=== PATIENT | male | born 1975 | race Caucasian/White ===

== ENCOUNTER 2020-09-14 07:26 | Outpatient (REF) | payer OTHER, SELFPAY ==
[2020-09-14 08:17] LABS: MANUAL DIFF FLAG NO
[2020-09-14 08:37] LABS: Basophils Percent Auto 0.6 % (0-2); Eosinophils Absolute Auto 0.1 X10*3/uL (0.0-0.4); Eosinophils Percent Auto 2.3 % (0-4); Hematocrit 48.1 % (42-52); Hemoglobin 15.4 g/dl (14.0-18.0); Imm Gran Abs Auto 0.01 X10*3/uL (0.00-0.03); Imm Gran Pct Auto 0.2 % (0.0-0.4); Lymphocytes Absolute Auto 1.9 X10*3/uL (1.2-4.9); Lymphocytes Percent Auto 30.3 % (20-40); Mean Corpuscular Hemoglobin 27.1 pg (27.0-33.0); Mean Corpuscular Volume 84.7 fL (80-98); Mean Platelet Volume 10.2 fL (9.4-12.4); Monocytes Absolute Auto 0.7 X10*3/uL (0.1-1.2); Monocytes Percent Auto 10.6 % (2-11); Neutrophils Absolute Auto 3.5 X10*3/uL (2.0-8.3); Platelet Count 223 X10*3/uL (160-400); Red Blood Count 5.68 X10*6/uL (4.60-5.80); Red Cell Distribution Width 13.1 % (11.0-16.0); White Blood Count 6.2 X10*3/uL (4.8-10.8)
[2020-09-14 08:50] LABS: Alanine Aminotransferase 23 U/L (0-40); Albumin Level 4.3 g/dL (3.5-5.0); Alkaline Phosphatase 66 U/L (39-117); Anion Gap 12 (12-20); Aspartate Amino Transferase 19 U/L (5-37); Bilirubin Total 0.3 mg/dL (0.0-1.0); Blood Urea Nitrogen 18 mg/dL (9-16); Calcium 8.8 mg/dL (8.4-10.2); Carbon Dioxide 28 mmol/L (22-29); Chloride 104 mmol/L (96-108); Cholesterol 192 mg/dL; Estimated Glomerular Filt Rate > 60; Glucose Random 92 mg/dL (60-115); HDL Cholesterol 39 mg/dL; LDL Cholesterol Calculated 122 mg/dl; Potassium 3.8 mmol/L (3.3-5.1); Sodium 140 mmol/L (135-145); Total Protein 7.2 g/dL (6.5-8.0); Triglycerides 157 mg/dL
[2020-09-14 10:01] LABS: Folate 17.4 ng/mL (> or = 4.0); Thyroid Stimulating Hormone 3.06 uIU/mL (0.32-4.0); Vitamin B12 387 pg/mL (200-900)
== END 2020-09-14 07:27 | disposition home or self-care (01) ==
LOC: HO.LAB 07:26
PROVIDERS: PCP Internal Medicine; Visit Provider Internal Medicine
DX: K21.9 Gastro-esophageal reflux disease without esophagitis (principal); E78.2 Mixed hyperlipidemia; E78.00 Pure hypercholesterolemia, unspecified
CPT/HCPCS: 36415; 80053; 80061; 82607; 82746; 84443; 85025

== ENCOUNTER 2022-02-23 08:18 | Outpatient (REF) | payer OTHER, SELFPAY ==
[2022-02-23 08:39] LABS: MANUAL DIFF FLAG NO
[2022-02-23 10:27] LABS: Basophils Percent Auto 0.6 % (0-2); Eosinophils Absolute Auto 0.1 X10*3/uL (0.0-0.4); Eosinophils Percent Auto 1.6 % (0-4); Hematocrit 50.4 % (42.0-52.0); Imm Gran Abs Auto 0.01 X10*3/uL (0.00-0.03); Imm Gran Pct Auto 0.1 % (0.0-0.4); Lymphocytes Absolute Auto 1.8 X10*3/uL (1.2-4.9); Lymphocytes Percent Auto 26.6 % (20-40); Mean Corpuscular HGB Conc 31.7 g/dl (31.0-36.0); Mean Corpuscular Hemoglobin 26.3 pg (27.0-33.0); Mean Corpuscular Volume 82.8 fL (80.0-98.0); Monocytes Absolute Auto 0.7 X10*3/uL (0.1-1.2); Monocytes Percent Auto 10.2 % (2-11); Neutrophils Absolute Auto 4.2 x10*3/uL (2.0-8.3); Neutrophils Percent Auto 60.9 % (45-73); Platelet Count 212 X10*3/uL (160-400); Red Blood Count 6.09 X10*6/uL (4.60-5.80); Red Cell Distribution Width 13.2 % (11.0-16.0); White Blood Count 6.8 X10*3/uL (4.8-10.8)
[2022-02-23 11:00] LABS: Alanine Aminotransferase 24 U/L (0-40); Alkaline Phosphatase 61 U/L (39-117); Anion Gap 16 (12-20); Aspartate Amino Transferase 20 U/L (5-37); Bilirubin Total 0.5 mg/dL (0.0-1.0); Blood Urea Nitrogen 14 mg/dL (9-16); Carbon Dioxide 26 mmol/L (22-29); Chloride 102 mmol/L (96-108); Cholesterol 202 mg/dL; Estimated Glomerular Filt Rate > 60; Glucose Random 87 mg/dL (60-115); HDL Cholesterol 37 mg/dL; LDL Cholesterol Calculated 140 mg/dl; Potassium 4.8 mmol/L (3.3-5.1); Sodium 139 mmol/L (135-145); Total Protein 7.1 g/dL (6.5-8.0); Triglycerides 125 mg/dL
[2022-02-23 11:10] LABS: Free T4 (Free Thyroxine) 1.05 ng/dL (0.71-1.85); Thyroid Stimulating Hormone 1.28 uIU/mL (0.32-4.0)
[2022-02-23 16:14] LABS: Folate > 20.0 ng/mL (> or = 4.0); Vitamin B12 476 pg/mL (200-900)
== END 2022-02-23 08:19 | disposition home or self-care (01) ==
LOC: HO.LAB 08:18
PROVIDERS: PCP Internal Medicine; Visit Provider Internal Medicine
DX: E78.2 Mixed hyperlipidemia (principal); E78.00 Pure hypercholesterolemia, unspecified
CPT/HCPCS: 36415; 80053; 80061; 82607; 82746; 84439; 84443; 85025

== ENCOUNTER → 2022-04-30 13:59 | Outpatient (BNVA) | payer OTHER, SELFPAY | PROVIDERS: PCP Internal Medicine; Referring Provider Internal Medicine; Visit Provider Physician Assistant | DX: Z12.11 Encounter for screening for malignant neoplasm of colon (principal); K21.9 Gastro-esophageal reflux disease without esophagitis | CPT/HCPCS: 99202 ==

== ENCOUNTER 2022-05-24 07:53 | Outpatient (REF) | payer OTHER, SELFPAY | END 2022-05-24 07:54 | disposition home or self-care (01) | LOC: HO.SH 07:53 | PROVIDERS: Visit Provider Internal Medicine | DX: H90.0 Conductive hearing loss, bilateral (principal); H69.93 Unspecified Eustachian tube disorder, bilateral | CPT/HCPCS: 92557; 92567; 92588 ==

== ENCOUNTER 2022-07-06 07:58 | Outpatient (REF) | payer OTHER, SELFPAY ==
[2022-07-06 09:13] LABS: Alanine Aminotransferase 23 U/L (0-40); Albumin Level 4.3 g/dL (3.5-5.0); Alkaline Phosphatase 65 U/L (39-117); Anion Gap 11 (12-20); Aspartate Amino Transferase 20 U/L (5-37); Bilirubin Total 0.6 mg/dL (0.0-1.0); Blood Urea Nitrogen 15 mg/dL (9-16); Calcium 9.7 mg/dL (8.4-10.2); Carbon Dioxide 28 mmol/L (22-29); Chloride 105 mmol/L (96-108); Cholesterol 191 mg/dL; Estimated Glomerular Filt Rate > 60; Glucose Random 93 mg/dL (60-115); HDL Cholesterol 39 mg/dL; LDL Cholesterol Calculated 130 mg/dl; Potassium 4.4 mmol/L (3.3-5.1); Sodium 140 mmol/L (135-145); Total Protein 7.2 g/dL (6.5-8.0); Triglycerides 114 mg/dL
[2022-07-13 13:18] LABS: Testosterone, Total 344 ng/dL (250-1100)
== END 2022-07-06 07:59 | disposition home or self-care (01) ==
LOC: HO.LAB 07:58
PROVIDERS: PCP Internal Medicine; Visit Provider Internal Medicine
DX: E78.2 Mixed hyperlipidemia (principal); E78.00 Pure hypercholesterolemia, unspecified; N52.9 Male erectile dysfunction, unspecified
CPT/HCPCS: 36415; 80053; 80061; 84403

== ENCOUNTER 2023-01-06 10:10 | Day surgery (SDC) | payer OTHER, SELFPAY ==
[2023-01-02 10:14] VITALS: BMI 28.6
--- NOTE | 2023-01-03 13:54 | HO.ANESPROP2 ---
Documented by User: Suzanna Gaytan NP 01/03/23 13:54 HPI - Anesthesia Eval Consult details Narrative: 47yo M for Upper Endoscopy and Colonoscopy [facility] Active Problems Active Problems: All Active Problems (Updated 07/08/22 @ 17:59 by Ortega Pike MD) Eczema (Acute) Onychomycosis (Acute) Vision changes (Acute) Conductive hearing loss (Acute) Overweight (BMI 25.0-29.9) (Acute) Annual physical exam (Acute) Tinea pedis (Acute) Erectile dysfunction (Acute) Colon cancer screening (Acute) Constipation (Acute) Hearing impairment (Acute) Hemorrhoid (Acute) Annual physical exam (Acute) COVID-19 virus infection (Acute) Allergic rhinitis (Acute) Hyperlipidemia (Acute) GERD (gastroesophageal reflux disease) (Acute) Past Medical History Medical History Allergic rhinitis Atherosclerosis GERD (gastroesophageal reflux disease) Hyperlipidemia Family History Family History Father Alive and well Mother Hypertension Depression Paternal Aunt Breast cancer Diabetes Sister Breast cancer Surgical History Surgical History History of vasectomy Social History Social History (Updated 07/08/22 @ 17:40 by Ortega Pike MD) Housing: House Alcohol intake: current Alcohol intake frequency: a few times a month Patient Tobacco Use Status: Never used Tobacco e-Cigarette/Vaping Use: Never Used Second Hand Smoke Exposure: No Use of substances other than those prescribed or required for medical reasons: No Are you DNR?: No Advance Directives: No Advance Directives Information Provided: Yes service: No Current occupational status: employed Cognitive needs: No Hearing needs: No Vision needs: No Meds Allergies Allergy/AdvReac Type Severity Reaction Status Date / Time iodine [IODINE] Allergy Mild RASH Verified 12/05/22 08:48 Home Medications Medication Instructions Recorded Confirmed Last Taken Type cholecalciferol (vitamin D3) 25 25 mcg PO DAILY 04/03/20 01/02/23 Unknown History mcg (1,000 unit) capsule multivitamin 1 tab PO DAILY 04/03/20 01/02/23 Unknown History garlic 500 mg capsule 500 mg PO DAILY 07/02/21 01/02/23 Unknown History Exam Exam Date and Time: January 03, 2023 1354 Height,Weight and Vital Signs: Height 5 ft 5 in Weight 78.018 kg Pertinent Lab Results Pertinent Lab Results: Laboratory Tests 02/23/22 07/06/22 08:38 08:12 WBC 6.8 Hgb 16.0 Hct 50.4 Plt Count 212 Sodium 140 Potassium 4.4 Chloride 105 Carbon Dioxide 28 BUN 15 Creatinine 1.20 Assessment and Plan Assessment Anesthesia Assessment: Chart Reviewed Documented by User: Joshua Adams MD 01/06/23 12:17 [facility] Past Medical History Medical History Allergic rhinitis Atherosclerosis GERD (gastroesophageal reflux disease) Hyperlipidemia Family History Family History Father Alive and well Mother Hypertension Depression Paternal Aunt Breast cancer Diabetes Sister Breast cancer Family history of problems with anesthesia: No Surgical History Surgical History History of vasectomy History of Problems with Anesthesia: No Social History Social History (Updated 07/08/22 @ 17:40 by Ortega Pike MD) Housing: House Alcohol intake: current Alcohol intake frequency: a few times a month Patient Tobacco Use Status: Never used Tobacco e-Cigarette/Vaping Use: Never Used Second Hand Smoke Exposure: No Use of substances other than those prescribed or required for medical reasons: No Are you DNR?: No Advance Directives: No Advance Directives Information Provided: Yes service: No Current occupational status: employed Cognitive needs: No Hearing needs: No Vision needs: No Meds Allergies Allergy/AdvReac Type Severity Reaction Status Date / Time iodine [IODINE] Allergy Mild RASH Verified 12/05/22 08:48 Home Medications Medication Instructions Recorded Confirmed Last Taken Type cholecalciferol (vitamin D3) 25 25 mcg PO DAILY 04/03/20 01/02/23 Unknown History mcg (1,000 unit) capsule multivitamin 1 tab PO DAILY 04/03/20 01/02/23 Unknown History garlic 500 mg capsule 500 mg PO DAILY 07/02/21 01/02/23 Unknown History Exam Airway Mallampati Class: II TM Dist: >3cm Neck ROM: Full Heart: rrr Lungs: cta Assessment and Plan Assessment Anesthesia Assessment: Anesthesia Plan Discussed Final Anesthetic Review Family History of Problems with Anesthesia: No History of Problems with Anesthesia: No NPO: Yes ASA Class: II Final Preanesthetic Review: No Changes in Pt Med Stat, Meds/Allgs Chart Reviewed, Consent Obtained/Reviewed and Anes Risks/Benef Reviewed Patient Risk: Intermediate Procedure Risk: Intermediate Anesthetic Plan Anesthetic Plan: MAC: and Agree w/ Assess. and Plan Disposition: Standard PACU
[2023-01-06 11:53] VITALS: BMI 27.8
--- NOTE | 2023-01-06 12:02 | P.HPSUR_ITS ---
Pre-Procedural Eval Section A Date of Service: 01/06/23 The patient is an INPATIENT: No The History & Physical has been completed within 30 days and I have reviewed it.: No Section B Chief Complaint: GERD/Screening Relevant Family History (Specify if Yes): No Relevant Social History: None Present Medications: see Short Stay Collaborative assessment Medical History: Significant History (Allergic rhinitis Atherosclerosis GERD (gastroesophageal reflux disease) Hyperlipidemia) History of Previous Operations: Relevant previous surgery/procedure and date(s) (History of vasectomy) Allergies: Allergies Allergy/AdvReac Type Severity Reaction Status Date / Time iodine [IODINE] Allergy Mild RASH Verified 12/05/22 08:48 Review of Systems Sugical H&P ROS: Negative: Constitution, Cardiovascular, Respiratory and Dinorah rointestinal Exam Surgical H&P Exam: Normal: Heart, Normal: Lungs, Normal: Extremities and Normal: Abdomen Plan Diagnosis/Plan: Unchanged I have reviewed the history and physical and performed a pertinent physical examination on my patient. No changes have occurred unless specified. Time Spent With Patient Time: Total time managing care of this patient today ____ minutes.
--- NOTE | 2023-01-06 12:02 | W.PM.OPN ---
Operative Note Operative Note Date of Service: 01/06/23 Narrative: FLEXIBLE TRANSORAL UPPER GASTROINTESTINAL ENDOSCOPY WITH BIOPSIES AND COLONOSCOPY TILL CECUM Pre-op diagnosis: colon cancer screening, GERD Post-op diagnosis: GERD, Gastritis, diverticulosis, hemorrhoids Endoscopist:? Violeta Adorno MD Anesthesia:?MAC UPPER ENDOSCOPY Consent: Indications for the procedure and potential complications of bleeding, perforation, reaction to medications and missed diagnosis were discussed with the patient and informed consent was obtained. Instrument: Olympus GIF H 190 mid size upper endoscope Monitoring: Vital signs and clinical assessment, continuous EKG monitoring, Pulse oximetry, Carbon Dioxide monitoring and blood pressure monitoring were done throughout the procedure. Procedure: The patient was placed in the left lateral decubitis position and pre-procedure medications were administered and a bite block was placed. The endoscope was inserted into the mouth and advanced under direct vision to the third part of duodenum. A careful inspection was made as the upper endoscope was withdrawn including a retroflexed examination of the proximal stomach; Findings and interventions are described below. Findings: Larynx: Normal Esophagus: GE junction at 40 cms. No esophagitis or Leal's. Stomach: Moderate diffuse gastric erythema. Biopsies were obtained from the antrum and body of the stomach. Grade 2 flap valve on retroflexed examination of the cardia. Duodenum: Normal bulb and descending duodenum Intervention: Biopsies as noted above COLONOSCOPY PROCEDURE NOTE Consent: Indications for the procedure and potential complications of bleeding, perforation, reaction to medications and missed diagnosis were discussed with the patient and informed consent was obtained. Instrument: Olympus PCF H 190 L variable stiffness pediatric colonoscope Monitoring: Vital signs and clinical assessment, intermittent blood pressure monitoring, continuous EKG monitoring, Pulse oximetry and Carbon Dioxide monitoring were done throughout the procedure. Colon withdrawl time was 10 minutes. Procedure: The patient was placed in the left lateral decubitis position and pre-procedure medications were administered. After a digital rectal examination of the ano-rectum, the video colonoscope was inserted into the rectum and advanced through the colon to the cecum. The colonoscope was slowly withdrawn in a retrograde panoramic fashion and the colon mucosa was carefully examined including a retroflexed view of the rectum. Findings and interventions are described below. Procedure Difficulty: : Without difficulty Findings: Terminal Ileum: Not evaluated Cecum: Normal Ascending Colon: Normal Transverse Colon: Normal Descending Colon: Normal Sigmoid Colon: Moderate diverticulosis Rectum: Normal Ano-rectum: Moderate internal hemorrhoids Colon preparation: Excellent Impression and Post Procedure Diagnosis: Endoscopy Findings: ESOPHAGUS: Normal STOMACH: Diffuse gastritis Colonoscopy Findings: No polyps were detected Moderate diverticulosis seen in the sigmoid colon Moderate hemorrhoids on retroflexed exam. Plan: Await pathology results Patient has an appointment on 02/12/23 in the GI Clinic with TUNG Busby . Repeat Colonoscopy in 10 years. Above findings were reviewed with the patient and GERD and diverticulosis handouts were given in the discharge area
[2023-01-06 12:06] VITALS: BP 117/71; PULSE 67; RESP 16; TEMP 36.5; O2SAT 98
[2023-01-06] MEDS: Lactated Ringers 1,000 ML 100 ML IVCONT (12:15)
[2023-01-06 13:39] VITALS: BP 93/52; PULSE 57; RESP 16; TEMP 36.1; O2SAT 98
[2023-01-06 13:54] VITALS: BP 103/62; PULSE 55; RESP 17; TEMP 36.5; O2SAT 99
== END 2023-01-06 15:07 | disposition home or self-care (01) ==
PROVIDERS: PCP Internal Medicine; Visit Provider Internal Medicine Gastroenterology
PROC: (CPT 45378; principal; 2023-01-06 11:50)
DX: Z12.11 Encounter for screening for malignant neoplasm of colon (principal); K29.70 Gastritis, unspecified, without bleeding; K57.30 Diverticulosis of large intestine without perforation or abscess without bleeding; K64.8 Other hemorrhoids; K21.9 Gastro-esophageal reflux disease without esophagitis; E78.5 Hyperlipidemia, unspecified; Z79.899 Other long term (current) drug therapy
CPT/HCPCS: 45378; 43239; 88305; 88342

== ENCOUNTER → 2023-01-06 10:10 | Outpatient (BNV) | payer OTHER, SELFPAY | PROVIDERS: PCP Internal Medicine; Visit Provider Internal Medicine Gastroenterology | DX: Z12.11 Encounter for screening for malignant neoplasm of colon (principal); K57.30 Diverticulosis of large intestine without perforation or abscess without bleeding; K64.8 Other hemorrhoids; K21.9 Gastro-esophageal reflux disease without esophagitis | CPT/HCPCS: 43239; 45378 ==

== ENCOUNTER 2023-02-20 11:53 | Outpatient (AMB) | payer OTHER, SELFPAY ==
--- NOTE | 2023-02-20 11:56 | A.OFFVIS_ITS ---
Intake Vital Signs 02/20/23 11:57 Height 5 ft 5 in Weight 169 lb BMI 28.1 BP 109/57 L Blood Pressure Location Lt brachial Position Sitting Pulse 67 Intake Visit Reasons: S/p egd/colon- Kyree Intake Note: Patient follow up fro Colonoscopy/EGD results. Patient cc: Embedded Developer Required: Yes Accompanied by: Self / Same As Patient Allergies iodine [IODINE] Allergy (Mild, Verified 02/20/23 11:56) RASH HPI HPI Comments History of Present Illness Details A 48-year-old male intermittent acid reflux, follows up after recent EGD and index screening colonoscopy He tolerated procedures well-he has no GI complaints other than occasional dyspepsia Reviewed procedure report, pathology recommendation Opportunity for question He has no nausea, vomiting, hematemesis, hematochezia fever chills PFSH Medical History Atherosclerosis Allergic rhinitis Hyperlipidemia GERD (gastroesophageal reflux disease) Surgical History Hx of colonoscopy Hx of esophagogastroduodenoscopy History of vasectomy Family History Father Alive and well Mother Hypertension Depression Paternal Aunt Breast cancer Diabetes Sister Breast cancer Social History Housing: House Alcohol intake: current Alcohol intake frequency: a few times a month Patient Tobacco Use Status: Never used Tobacco e-Cigarette/Vaping Use: Never Used Second Hand Smoke Exposure: No service: No Current occupational status: employed Cognitive needs: No Hearing needs: No Vision needs: No Review of Systems Const All systems reviewed & are unremarkable except as noted in HPI and below Card Denies chest pain and Denies dyspnea Resp Denies dyspnea GI Reports dyspepsia Physical Exam Vital Signs: Last Vital Signs Pulse 67 02/20/23 11:57 BP 109/57 L 02/20/23 11:57 BMI result Body Mass Index 28.1 Const General: cooperative, healthy appearing, comfortable and no acute distress Orientation/consciousness: patient oriented x3 Limitations: no limitations Eyes Sclerae: sclerae normal Resp Effort & Inspection: normal respiratory effort and able to speak in complete sentences Skin General skin exam: no rashes or lesions noted Neuro General: patient oriented x3 Extrem General: Yes full ROM Psych Appearance: grossly normal and well kempt Mental Status: mental status grossly normal Speech and movement: Normal speech and movement present and Clear speech present Affect: normal affect Attitude: cooperative Thought process: Normal thought process present Thought content: Normal thought content present Insight: Good insight present (Psych) Judgement: Good judgement present (Psych) Results Reviewed Results Reviewed: mpression and Post Procedure Diagnosis: Endoscopy Findings: ESOPHAGUS: Normal STOMACH: Diffuse gastritis Colonoscopy Findings: No polyps were detected Moderate diverticulosis seen in the sigmoid colon Moderate hemorrhoids on retroflexed exam. Plan: Await pathology results Patient has an appointment on 02/12/23 in the GI Clinic with TUNG Busby . Repeat Colonoscopy in 10 years. Above findings were reviewed with the patient and GERD and diverticulosis handouts were given in the discharge area raul: Isak Junior Age/Sex: 48/M Attending: Violeta Adorno MD : 1975 Submitted by: Violeta Adorno MD Copies to: Ortega Pike MD MR #: [id number] Status: [facility] Collected: 01/06/23 Location: [facility] Received: 01/06/23 Diagnosis A. Stomach, antrum, biopsy: - Antral-type mucosa with severe chronic active inflammation. - Positive for H pylori. B. Stomach, body, biopsy: - Oxyntic mucosa with moderate chronic inactive inflammation. - Rare forms morphologically consistent with H.pylori identified. Clinical History Pre-Op Dx: Screening Post-Op Dx: GERD, Gastritis, diverticulosis, hemorrhoids Microscopic Description A, B. Microscopic sections reviewed. Immunostain for H. pylori is reactive (A a nd B; rare forms in B). Material Received A. Gastric antrum to r/o H. pylori B. Gastric body to r/o gastritis Gross Description A. Received in formalin are 2 mckeon 1 and 3 mm soft tissue fragments, totally submitted in cassette A1. B. Received in formalin are 2 mckeon 1 and 3 mm soft tissue fragments, totally submitted in cassette B1. (DTL) Special studies ordered and performed: immunostain for H. pylori on A and B Copies To Violeta Adorno MD [address] [place] [address] [place] [id number] Po,Ortega Layne MD [address] [place] [address] Dr. Velásquez [address] [id number] Patient: Isak Junior Age/Sex: 48/M MR#: [id number] Page 1 of 2 Assessment & Plan Assessment & Plan (1) Diverticulosis of colon: Code(s): K57.30 - Diverticulosis of large intestine without perforation or abscess without bleeding Plan: High-fiber diet Diverticulosis/diverticulitis ER protocol (2) Gastritis: Code(s): K29.70 - Gastritis, unspecified, without bleeding (3) Hemorrhoid: Code(s): K64.9 - Unspecified hemorrhoids Plan: High-fiber Avoid straining (4) H. pylori infection: Comment: H pylori Code(s): A04.8 - Other specified bacterial intestinal infections Plan: Treat /ELTON 6 weeks Plan H pylori treat-return for ELTON 6 weeks Repeat asymptomatic colonoscopy 10 years Orders: Orders H Pylori Breath Test 6 Weeks A04.8 - Other specified bacterial intestinal infections Medications: New tetracycline 500 mg PO Q6H 14 days 56 caps 0RF omeprazole 20 mg PO BID 14 days 28 caps 0RF metronidazole 250 mg PO QID 14 days 56 tabs 0RF bismuth subsalicylate (Bismuth) 2 tabs PO QID 14 days 112 tabs 0RF Patient Instructions: Gurpreet Bernabe follows up after recent index screening colonoscopy and EGD-repeat asymptomatic colonoscopy 10 years Reviewed procedure report pathology shows H pylori-2 week course of treatment- encouraged to complete will do a ELTON in 6 weeks Diverticulosis/diverticulitis ER protocol review Maintain high-fiber diet-hemorrhoids avoid straining, if become problematic will refer to surgery he declines at this time No major barriers to understanding were identified Appreciate the opportunity assist in the care this gurpreet Bernabe Coding Level of Care Code Est Pt Level 3 (37798) Diagnoses Diverticulosis of colon K57.30 Gastritis K29.70 Hemorrhoid K64.9 H. pylori infection A04.8 Time Spent (min) 30
[2023-02-20 11:57] VITALS: BP 109/57; PULSE 67; BMI 28.1
== END 2023-02-20 13:47 | disposition home or self-care (01) ==
PROVIDERS: PCP Internal Medicine; Visit Provider Physician Assistant
DX: K57.30 Diverticulosis of large intestine without perforation or abscess without bleeding (principal); K29.70 Gastritis, unspecified, without bleeding; K64.9 Unspecified hemorrhoids; A04.8 Other specified bacterial intestinal infections
CPT/HCPCS: 99213

== ENCOUNTER → 2023-02-20 11:53 | Outpatient (BNVA) | payer OTHER, SELFPAY | PROVIDERS: PCP Internal Medicine; Visit Provider Physician Assistant | DX: K57.30 Diverticulosis of large intestine without perforation or abscess without bleeding (principal); K29.70 Gastritis, unspecified, without bleeding; K64.9 Unspecified hemorrhoids; A04.8 Other specified bacterial intestinal infections | CPT/HCPCS: 99212 ==

== ENCOUNTER 2023-04-03 07:59 | Outpatient (AMB) | payer OTHER, SELFPAY ==
--- NOTE | 2023-04-03 08:07 | MHC.OFFVIS ---
Intake Vital Signs 04/03/23 08:09 Height 5 ft 5 in Weight 172 lb BMI 28.6 BP 104/54 L Blood Pressure Location Lt brachial Position Sitting Pulse 73 Intake Visit Reasons: 6weeks f/u h-pylori Intake Note: Patient follow up for h pylori recheck. Patient denies any GI issues. Java Golden [employer] Developer Required: No Accompanied by: Self / Same As Patient Allergies iodine [IODINE] Allergy (Mild, Verified 04/03/23 08:07) RASH HPI HPI Comments History of Present Illness Details 48-year-old male treated for H pylori, follows up for ELTON-he feels well he tolerated the course of treatment well. No dyspepsia, appetite good no issues with bowel No nausea, vomiting, hematemesis, hematochezia fever or chills PFSH Medical History Atherosclerosis Allergic rhinitis Hyperlipidemia GERD (gastroesophageal reflux disease) Surgical History Hx of colonoscopy Hx of esophagogastroduodenoscopy History of vasectomy Family History Father Alive and well Mother Hypertension Depression Paternal Aunt Breast cancer Diabetes Sister Breast cancer Social History Housing: House Alcohol intake: current Alcohol intake frequency: a few times a month Patient Tobacco Use Status: Never used Tobacco e-Cigarette/Vaping Use: Never Used Second Hand Smoke Exposure: No service: No Current occupational status: employed Cognitive needs: No Hearing needs: No Vision needs: No Review of Systems Const Details: All other systems reviewed are negative All systems reviewed & are unremarkable except as noted in HPI and below Physical Exam Vital Signs: Last Vital Signs Pulse 73 04/03/23 08:09 BP 104/54 L 04/03/23 08:09 BMI result Body Mass Index 28.6 Const General: cooperative, healthy appearing, comfortable and no acute distress Orientation/consciousness: patient oriented x3 Limitations: no limitations Resp Effort & Inspection: normal respiratory effort and able to speak in complete sentences Skin General skin exam: no rashes or lesions noted Neuro General: patient oriented x3 Extrem General: Yes full ROM Psych Appearance: grossly normal and well kempt Mental Status: mental status grossly normal Speech and movement: Normal speech and movement present and Clear speech present Affect: normal affect Attitude: cooperative Thought process: Normal thought process present Thought content: Normal thought content present Insight: Good insight present (Psych) Judgement: Good judgement present (Psych) Assessment & Plan Assessment & Plan (1) H. pylori infection: Comment: A very pleasant Gent, H pylori-treated quadruple therapy- Code(s): A04.8 - Other specified bacterial intestinal infections Plan: HP UBT-ELTON- Plan Await H pylori results Patient Instructions: Await results for H pylori if negative nothing more to do If positive will re-treat Patient will call in 48 hours for results Coding Level of Care Code Est Pt Level 3 (36497) Diagnoses H. pylori infection A04.8 Time Spent (min) 35
[2023-04-03 08:09] VITALS: BP 104/54; PULSE 73; BMI 28.6
== END 2023-04-03 09:10 | disposition home or self-care (01) ==
PROVIDERS: PCP Internal Medicine; Visit Provider Physician Assistant
DX: A04.8 Other specified bacterial intestinal infections (principal)
CPT/HCPCS: 99213

== ENCOUNTER → 2023-04-03 07:59 | Outpatient (BNVA) | payer OTHER, SELFPAY | PROVIDERS: PCP Internal Medicine; Visit Provider Physician Assistant | DX: A04.8 Other specified bacterial intestinal infections (principal) | CPT/HCPCS: 99212 ==

== ENCOUNTER 2023-04-07 15:21 | Outpatient (REF) | payer OTHER, SELFPAY ==
[2023-04-10 16:30] LABS: H Pylori Breath Test Negative (Negative)
== END 2023-04-07 15:22 | disposition home or self-care (01) ==
LOC: HO.LNP 15:21
PROVIDERS: Visit Provider Physician Assistant
DX: A04.8 Other specified bacterial intestinal infections (principal)
CPT/HCPCS: 83013

== ENCOUNTER 2023-07-15 07:40 | Outpatient (REF) | payer OTHER, SELFPAY ==
[2023-07-15 08:15] LABS: Alanine Aminotransferase 28 U/L (0-40); Alkaline Phosphatase 65 U/L (39-117); Aspartate Amino Transferase 18 U/L (5-37); Bilirubin Direct 0.1 mg/dL (0.0-0.5); Bilirubin Total 0.4 mg/dL (0.0-1.0)
== END 2023-07-15 07:41 | disposition home or self-care (01) ==
LOC: HO.LAB 07:40
PROVIDERS: Absent Provider Internal Medicine; PCP Internal Medicine; Visit Provider Nurse Practitioner Family
DX: R79.89 Other specified abnormal findings of blood chemistry (principal); H90.2 Conductive hearing loss, unspecified
CPT/HCPCS: 36415; 80076

== ENCOUNTER 2023-07-18 16:00 | Outpatient (AMB) | payer OTHER, SELFPAY ==
[2023-07-18 16:10] VITALS: BP 110/78; PULSE 70; O2SAT 98; BMI 28.7
--- NOTE | 2023-07-18 16:10 | MHC.PC.OV ---
Vital Signs 07/18/23 16:10 Height 5 ft 5 in Weight 172 lb 6 oz BMI 28.7 BP 110/78 Blood Pressure Location Lt brachial Position Sitting Pulse 70 Pulse Source Pulse Oximeter Pulse Oximetry (%) 98 Oxygen Delivery Method Room Air Intake Visit Reasons: PE Intake Note: Patient is here today for a physical. Frame Stripper Required: No Accompanied by: Self / Same As Patient Allergies iodine [IODINE] Allergy (Mild, Verified 07/18/23 16:22) RASH Medication List - Last Reconciled 07/18/23 by Ortega Pike MD cholecalciferol (vitamin D3) 25 mcg PO DAILY clotrimazole 1% 1 appl topical BID 4 weeks multivitamin 1 tab PO DAILY pravastatin 20 mg PO DAILY sildenafil (Viagra) 100 mg PO DAILY PRN triamcinolone acetonide 0.5% 1 appl topical BID 7 days Tobacco use date assessed: 07/18/23 Dental Screening Dental Screen Date: 07/18/23 Did you have a dental visit in the last 12 months?: Yes Did you have a dental problem in the last 6 months where you did not have access to dental care?: No Was dental information given to patient?: Patient has dentist HPI PE HPI Details 48-year-old overweight male with hypercholesterolemia GERD coming in for physical exam. Last seen in November 2022. EGD and colonoscopy are up-to-date. Review of the notes was seen by the Gastroenterology in March 2023 for H pylori follow-up patient had EGD and colonoscopy in December 2022 and the stomach biopsy showing positive for H pylori and the patient was treated.. Noted nurse practitioner follow-up in November 2022. states 2-3 days of L shoulder pain PFSH Medical History Atherosclerosis Allergic rhinitis Hyperlipidemia GERD (gastroesophageal reflux disease) Surgical History Hx of colonoscopy Hx of esophagogastroduodenoscopy History of vasectomy Family History (Updated 07/18/23 @ 16:41 by Ortega Pike MD) Father Alive and well Mother Hypertension Depression Paternal Aunt Breast cancer Diabetes Sister Breast cancer Paternal Grandmother Myocardial infarct Social History (Updated 07/18/23 @ 16:42 by Ortega Pike MD) Housing: House Alcohol intake: current Alcohol intake frequency: a few times a month Comment: once a month- 3 drinks Patient Tobacco Use Status: Never used Tobacco Years Smoked: does Marijuana e-Cigarette/Vaping Use: Never Used Second Hand Smoke Exposure: No service: No Current occupational status: employed Cognitive needs: No Hearing needs: No Vision needs: No Questionnaire PHQ-9 Over the last 2 weeks, how often have you been bothered by any of the following problems? 1. Little interest or pleasure in doing things: not at all 2. Feeling down, depressed, or hopeless: not at all 3. Trouble falling or staying asleep, or sleeping too much: not at all 4. Feeling tired or having little energy: not at all 5. Poor appetite or overeating: not at all 6. Feeling bad about yourself - or that you are a failure or have let yourself or your family down: not at all 7. Trouble concentrating on things, such as reading the newspaper or watching television: not at all 8. Moving or speaking so slowly that other people could have noticed. Or the opposite - being so fidgety or restless that you have been moving around a lot more than usual: not at all 9. Thoughts that you would be better off or of hurting yourself in some way: not at all Total score: 0 Depression Screening Interpretation: Negative Depression Screening Done: Yes 97542 - PHQ-9 Billing: Yes Source: Developed by Drs. Ramírez Dawson, Carri Marie, Gonzalo العلي and colleagues, with an educational faustino from [employer]. Thrive Questionnaire Date Thrive assessed: 07/18/23 I am a: Patient What is your living situation today?: I have a steady place to live Within the past 12 months, did the food you bought not last and you didn't have the money to get more?: Never true Within the past 12 months, did you worry whether your food would run out before you got money to buy more?: Never true Do you have trouble paying for medicines?: No Do you have trouble getting transportation to medical appointments?: No Do you have trouble paying your heating and electricity bill?: No Do you have trouble taking care of your child, family member or friend?: No Do you have trouble with day-to-day activities such as bathing, preparing meals, shopping, managing finances, etc.?: No Are you currently unemployed and looking for a job?: No Are you interested in more education?: No Please select the resources that you would like help with: None Currently or been in a relationship where the following occur: no concerns reported THRIVE Score: 0 AUDIT C Alcohol Use Questionnaire (AUDIT-C) 1. How often do you have a drink containing alcohol?: Monthly or less 2. How many drinks containing alcohol do you have on a typical day when you are drinking?: 5 or 6 3. How often do you have six or more drinks on one occasion?: Less than monthly Total Score: 4 ADITYA-7 AMB Questionnaire ADITYA-7 Date ADITYA - 7 assessed: 07/18/23 Feeling nervous, anxious, or on edge: 0 = Not at all Not being able to stop or control worryin = Not at all Worrying too much about different things: 0 = Not at all Trouble relaxin = Not at all Being so restless that it is hard to sit still: 0 = Not at all Becoming easily annoyed or irritable: 0 = Not at all Feeling afraid as if something awful might happen: 0 = Not at all Total ADITYA-7 score (0-4 normal; 5-9 mild; 10-14 moderate; 15-21 severe): 0 Source: Developed by Drs. Ramírez Dawson, Carri Marie, Gonzalo العلي and colleagues, with an educational faustino from [employer]. ADITYA-7 Assessment Billing ADITYA-7 Assessment Tool: ADITYA-7 Assessment 51125 Review of Systems Const Denies poor appetite and Denies weakness Eyes Denies no additional complaints ENT Reports Normal hearing present, Denies dizziness, Denies nasal congestion, Denies tinnitus and Denies sore throat Card Denies chest pain, Denies syncope, Denies rapid heart rate and Denies dyspnea Resp Denies cough and Denies dyspnea GI Denies change in stool character, Reports constipation, Denies diarrhea, Denies nausea and Denies vomiting Denies dysuria and Denies urinary frequency Neuro Reports Normal hearing present, Denies confusion, Denies dizziness, Denies syncope and Denies weakness Psych Denies confusion Physical exam (Primary Care) BMI result Body Mass Index 28.7 Tobacco/Smoking Status: Tobacco use Status Tobacco use date assessed 07/08/22 07/18/23 16:11 Patient Tobacco Use Status Never used Tobacco 07/18/23 16:11 e-Cigarette/Vaping Use Never Used 07/18/23 16:11 Depression Screening Interpretation: Negative Thrive Assessment: Date of Thrive Assessment Date Thrive assessed 07/08/22 07/18/23 16:11 Currently or been in a relationship where the following occur: no concerns reported Const General: No confusion Orientation/consciousness: No confusion HENMT Head: Yes normocephalic Ears: external ears normal and TM's normal bilaterally Face and sinus: Yes normal facial exam Mouth: moist mucous membranes Throat: Yes tonsils normal Eyes Conjunctivae: conjunctivae normal Pupils: Equal, round and reactive pupils present and Pupil accommodation reflex normal Direct Ophthalmoscopy: normal light reflex Neck Neck: No lymphadenopathy Thyroid: Thyroid normal Chest Chest palpation & inspection: normal inspection of the chest Resp Effort & Inspection: normal respiratory effort and no audible wheezes Auscultation: clear to auscultation bilaterally, no crackles, no wheezes and lung sounds not diminished Cardio Rate: regular rate Rhythm: regular rhythm Peripheral pulses: radial pulses present and dorsalis pedis present GI Palpation (GI): no masses Auscultation: normal bowel sounds and normoactive bowel sounds Rectal Exam - Male: Yes deferred Skin General skin exam: no rashes or lesions noted Rashes: no rashes Neuro General: No confusion Cranial nerves: Yes Equal, round and reactive pupils present and Yes Normal hearing present Cognition (Neuro): normal cognition Gait exam (Neuro): Normal gait present Motor exam (neuro): 5/5 motor strength present throughout Deep tendon reflexes (DTR's): Right brachioradialis reflex intensity grade: 2+, Left brachioradialis reflex intensity grade: 2+, Right patellar reflex intensity grade: 2+ and Left patellar reflex intensity grade: 2+ Extrem General: No edema Assessment and Plan Assessment & Plan (1) Annual physical exam: Code(s): Z00.00 - Encounter for general adult medical examination without abnormal findings (2) GERD (gastroesophageal reflux disease): Comment: [facility] surveillance Code(s): K21.9 - Gastro-esophageal reflux disease without esophagitis Qualifiers: Esophagitis presence: without esophagitis Qualified Code(s): K21.9 - Gastro-esophageal reflux disease without esophagitis Plan: Avoid the foods that causes that usually spicy foods, tomato products, juices, coffee, soda and foods that your sensitive to. After eating do not lie down, allow 3-4 hours before in lie down. And keep the head of bed above 30 degrees to avoid the acid from going up. (3) Hyperlipidemia: Code(s): E78.5 - Hyperlipidemia, unspecified Qualifiers: Hyperlipidemia type: mixed hyperlipidemia Qualified Code(s): E78.2 - Mixed hyperlipidemia Plan: Avoid fried foods, chicken skin, eggs, butter margarine, pastries and meat. Be it pork or beef they have a lot of cholesterol LDL goal of less than 130 and triglyceride of less than 150 patient on pravastatin 20 mg once a day Orders: Orders Complete Blood Count Auto Diff Today E78.2 - Mixed hyperlipidemia Comprehensive Met. Panel Today E78.2 - Mixed hyperlipidemia Free T4 (Free Thyroxine) Today E78.2 - Mixed hyperlipidemia Thyroid Stimulating Hormone Today E78.2 - Mixed hyperlipidemia Lipid Panel Today E78.00 - Pure hypercholesterolemia, unspecified, E78.2 - Mixed hyperlipidemia Vitamin B12 and Folate Today E78.2 - Mixed hyperlipidemia Coding Level of Care Code Est Pt Prev Care 40-64y(18060) Diagnoses Annual physical exam Z00.00 Gastroesophageal reflux disease without esophagitis K21.9 Esophagitis presence: without esophagitis Mixed hyperlipidemia E78.2 Hyperlipidemia type: mixed hyperlipidemia Additional Codes ADITYA-7 Assessment Billing - ADITYA-7 Assessment Tool: ADITYA-7 Assessment [id number] ([id number])
== END 2023-07-18 17:01 | disposition home or self-care (01) ==
PROVIDERS: Visit Provider Internal Medicine
DX: Z00.00 Encounter for general adult medical examination without abnormal findings (principal); K21.9 Gastro-esophageal reflux disease without esophagitis; E78.2 Mixed hyperlipidemia
CPT/HCPCS: 99396

== ENCOUNTER 2024-07-16 06:35 | Outpatient (REF) | payer OTHER, SELFPAY ==
[2024-07-16 06:44] LABS: MANUAL DIFF FLAG NO
[2024-07-16 07:08] LABS: Basophils Percent Auto 0.5 % (0-2); Eosinophils Absolute Auto 0.2 X10*3/uL (0.0-0.4); Eosinophils Percent Auto 2.8 % (0-4); Hematocrit 48.4 % (42.0-52.0); Hemoglobin 15.8 g/dl (14.0-18.0); Imm Gran Abs Auto 0.02 X10*3/uL (0.00-0.03); Imm Gran Pct Auto 0.3 % (0.0-0.4); Lymphocytes Percent Auto 25.2 % (20-40); Mean Corpuscular HGB Conc 32.6 g/dl (31.0-36.0); Mean Corpuscular Hemoglobin 26.9 pg (27.0-33.0); Mean Corpuscular Volume 82.5 fL (80.0-98.0); Mean Platelet Volume 9.6 fL (9.4-12.4); Monocytes Absolute Auto 0.8 X10*3/uL (0.1-1.2); Monocytes Percent Auto 10.4 % (2-11); Neutrophils Absolute Auto 4.8 x10*3/uL (2.0-8.3); Neutrophils Percent Auto 60.8 % (45-73); Platelet Count 211 X10*3/uL (160-400); Red Blood Count 5.87 X10*6/uL (4.60-5.80); Red Cell Distribution Width 13.2 % (11.0-16.0); White Blood Count 7.9 X10*3/uL (4.8-10.8)
[2024-07-16 07:47] LABS: Alanine Aminotransferase 24 U/L (0-40); Alkaline Phosphatase 74 U/L (39-117); Anion Gap 12 (12-20); Aspartate Amino Transferase 22 U/L (5-37); Bilirubin Total 0.4 mg/dL (0.0-1.0); Blood Urea Nitrogen 16 mg/dL (9-16); Calcium 9.3 mg/dL (8.4-10.2); Carbon Dioxide 26 mmol/L (22-29); Chloride 108 mmol/L (96-108); Cholesterol 186 mg/dL (<200); Estimated Glomerular Filt Rate > 60; Glucose Random 92 mg/dL (60-115); HDL Cholesterol 39 mg/dL (>40); LDL Cholesterol Calculated 124 mg/dL (<100); Potassium 4.3 mmol/L (3.3-5.1); Sodium 142 mmol/L (135-145); Total Protein 7.4 g/dL (6.5-8.0); Triglycerides 115 mg/dL (<150)
[2024-07-16 08:02] LABS: Thyroid Stimulating Hormone 2.09 uIU/mL (0.32-4.0)
[2024-07-16 08:09] LABS: Folate 12.6 ng/mL (> or = 4.0); Vitamin B12 302 pg/mL (200-900)
== END 2024-07-16 06:36 | disposition home or self-care (01) ==
LOC: HO.LAB 06:35
PROVIDERS: PCP Internal Medicine; Visit Provider Internal Medicine
DX: E78.2 Mixed hyperlipidemia (principal); E78.00 Pure hypercholesterolemia, unspecified
CPT/HCPCS: 36415; 80053; 80061; 82607; 82746; 84439; 84443; 85025

== ENCOUNTER 2024-07-20 16:12 | Outpatient (AMB) | payer OTHER, SELFPAY ==
[2024-07-20 16:13] VITALS: BP 118/62; PULSE 64; O2SAT 98
--- NOTE | 2024-07-20 16:13 | MHC.PC.OV ---
Vital Signs 07/20/24 16:13 Height 5 ft 5 in Weight 180 lb BMI 30.0 BP 118/62 Blood Pressure Location Lt brachial Position Sitting Pulse 64 Pulse Source Pulse Oximeter Pulse Oximetry (%) 98 Oxygen Delivery Method Room Air Intake Visit Reasons: pe Allergies iodine [IODINE] Allergy (Mild, Verified 07/20/24 16:13) RASH Medication List - Last Reconciled 07/20/24 by Ortega Pike MD cholecalciferol (vitamin D3) 25 mcg PO DAILY clotrimazole 1% 1 appl topical BID 4 weeks multivitamin 1 tab PO DAILY pravastatin 20 mg PO DAILY sildenafil (Viagra) 100 mg PO DAILY PRN triamcinolone acetonide 0.5% 1 appl topical BID 7 days Tobacco use date assessed: 07/20/24 Dental Screening Dental Screen Date: 07/20/24 Did you have a dental visit in the last 12 months?: Yes Did you have a dental problem in the last 6 months where you did not have access to dental care?: No Was dental information given to patient?: Patient has dentist HPI pe HPI Details The patient is a 49-year-old male presenting with concerns primarily related to gastrointestinal issues and hypercholesterolemia management following an 8-pound weight gain. The patient has a history of Gastroesophageal Reflux Disease (GERD) and gastritis, previously managed with dietary measures and omeprazole for H. pylori treatment. Currently, he reports no heartburn but mentions occasional discomfort in the epigastric region exacerbated by specific foods such as beans. Past interventions for GERD included lifestyle modifications to avoid trigger foods and elevate the head of the bed. The patient is also being monitored for hypercholesterolemia, managed with pravastatin, with recent laboratory results indicating an LDL cholesterol of 124 mg/dL, which is currently being reassessed given a previous finding of atherosclerosis in 2015. There is a concern for prostate health following a past scan indicating benign prostatic hyperplasia, though no current urinary symptoms have been reported. Obesity is also noted, with a body mass index placing him in the obese category. Previous counseling emphasized dietary modifications and exercise. - Discussed dietary modifications to reduce GERD symptoms. - Emphasized weight management and regular exercise to address obesity. - Ongoing lipid management with pravastatin. Recommended potentially stronger medications if necessitated by lipid levels. - Ultrasound to monitor prostate due to prior finding of benign prostatic hyperplasia. - Vaccination for flu was offered, given the current season and risk of illness. - Education on risks associated with marijuana use, particularly regarding cardiovascular health. - Follow-up for lipid panel in three months to evaluate cholesterol management. - Advised on potential risks of recurring atherosclerosis and need for LDL below targeted level. - Marijuana use noted occasionally. - No tobacco use or regular alcohol consumption. - Occupation details not discussed. - Physical activity level seems limited as patient reports stiffness and difficulty bending. - Gastrointestinal: Denies nausea, vomiting, and constipation. Occasional abdominal discomfort reported. - Genitourinary: Denies dysuria, nocturia reported twice per night. - Musculoskeletal: Reports stiffness. - Neurological: Denies dizziness, syncope. - Respiratory: Denies shortness of breath. - Cardiac: Denies chest pain. - Dermatological: No rashes except for a past iodine-related rash. - Allergy/Immunology: Reports throat itch relieved by allergy medication. - Labs: Normal blood counts, kidney function, liver function tests, and fasting glucose levels. - LDL cholesterol: 124 mg/dL, noted in context of atherosclerosis management. - Imaging: CT scan from 2015 indicating atherosclerosis and benign prostatic hyperplasia. [facility] Medical History (Updated 07/20/24 @ 16:56 by Orteag Pike MD) Colon cancer screening Atherosclerosis Allergic rhinitis Hyperlipidemia GERD (gastroesophageal reflux disease) Surgical History (Reviewed 07/18/23 @ 16:24 by Juana Coyne [facility]) Hx of colonoscopy Hx of esophagogastroduodenoscopy History of vasectomy Family History (Updated 07/18/23 @ 16:41 by Ortega Pike MD) Father Alive and well Mother Hypertension Depression Paternal Aunt Breast cancer Diabetes Sister Breast cancer Paternal Grandmother Myocardial infarct Social History (Updated 07/20/24 @ 16:39 by Ortega Pike MD) Housing: House Alcohol intake: current Alcohol intake frequency: a few times a month Comment: once to twice a month- 3 drinks Patient Tobacco Use Status: Never used Tobacco Years Smoked: does Marijuana e-Cigarette/Vaping Use: Never Used Second Hand Smoke Exposure: No service: No Current occupational status: employed Cognitive needs: No Hearing needs: No Vision needs: No Questionnaire PHQ-9 Over the last 2 weeks, how often have you been bothered by any of the following problems? 1. Little interest or pleasure in doing things: not at all 2. Feeling down, depressed, or hopeless: not at all 3. Trouble falling or staying asleep, or sleeping too much: not at all 4. Feeling tired or having little energy: not at all 5. Poor appetite or overeating: not at all 6. Feeling bad about yourself - or that you are a failure or have let yourself or your family down: not at all 7. Trouble concentrating on things, such as reading the newspaper or watching television: not at all 8. Moving or speaking so slowly that other people could have noticed. Or the opposite - being so fidgety or restless that you have been moving around a lot more than usual: not at all 9. Thoughts that you would be better off or of hurting yourself in some way: not at all Total score: 0 Depression Screening Interpretation: Negative Depression Screening Done: Yes 61191 - PHQ-9 Billing: Yes Source: Developed by Drs. Ramírez Dawson, Carri Marie, Gonzalo العلي and colleagues, with an educational faustino from [employer]. Thrive Questionnaire Date Thrive assessed: 07/20/24 I am a: Patient What is your living situation today?: I have a steady place to live Within the past 12 months, did the food you bought not last and you didn't have the money to get more?: Never true Within the past 12 months, did you worry whether your food would run out before you got money to buy more?: Never true Do you have trouble paying for medicines?: No Do you have trouble getting transportation to medical appointments?: No Do you have trouble paying your heating and electricity bill?: No Do you have trouble taking care of your child, family member or friend?: No Do you have trouble with day-to-day activities such as bathing, preparing meals, shopping, managing finances, etc.?: No Are you currently unemployed and looking for a job?: No Are you interested in more education?: No Please select the resources that you would like help with: None Currently or been in a relationship where the following occur: No concerns reported THRIVE Score: 0 AUDIT C Alcohol Use Questionnaire (AUDIT-C) 1. How often do you have a drink containing alcohol?: Monthly or less 2. How many drinks containing alcohol do you have on a typical day when you are drinking?: 5 or 6 3. How often do you have six or more drinks on one occasion?: Less than monthly Total Score: 4 ADITYA-7 AMB Questionnaire ADITYA-7 Date ADITYA - 7 assessed: 07/20/24 Feeling nervous, anxious, or on edge: 0 = Not at all Not being able to stop or control worryin = Not at all Worrying too much about different things: 0 = Not at all Trouble relaxin = Not at all Being so restless that it is hard to sit still: 0 = Not at all Becoming easily annoyed or irritable: 0 = Not at all Feeling afraid as if something awful might happen: 0 = Not at all Total ADITYA-7 score (0-4 normal; 5-9 mild; 10-14 moderate; 15-21 severe): 0 Source: Developed by Drs. Ramírez Dawson, Carri Marie, Gonzalo العلي and colleagues, with an educational faustino from [employer]. ADITYA-7 Assessment Billing ADITYA-7 Assessment Tool: ADITYA-7 Assessment 25146 Review of Systems Const Denies poor appetite and Denies weakness Eyes Denies no additional complaints ENT Reports Normal hearing present, Denies dizziness, Denies nasal congestion, Denies tinnitus and Denies sore throat Card Denies chest pain, Denies syncope, Denies rapid heart rate and Denies dyspnea Resp Denies cough and Denies dyspnea GI Denies change in stool character, Reports constipation, Denies diarrhea, Denies nausea and Denies vomiting Denies dysuria and Denies urinary frequency Neuro Reports Normal hearing present, Denies confusion, Denies dizziness, Denies syncope and Denies weakness Psych Denies confusion Physical exam (Primary Care) Vital Signs: Last Vital Signs Pulse 64 07/20/24 16:13 BP 118/62 07/20/24 16:13 Pulse Ox 98 07/20/24 16:13 Oxygen Delivery Method Room Air 07/20/24 16:13 BMI result Body Mass Index 30.0 Tobacco/Smoking Status: Tobacco use Status Tobacco use date assessed 07/20/24 07/20/24 16:15 Patient Tobacco Use Status Never used Tobacco 07/20/24 16:39 e-Cigarette/Vaping Use Never Used 07/20/24 16:39 PHQ-9: PHQ-9 Score PHQ-9: Total score 0 07/20/24 17:04 Depression Screening Interpretation: Negative Thrive Assessment: Date of Thrive Assessment Date Thrive assessed 07/20/24 07/20/24 16:15 Currently or been in a relationship where the following occur: No concerns reported Const General: No confusion Orientation/consciousness: No confusion HENMT Head: Yes normocephalic Ears: external ears normal and TM's normal bilaterally Face and sinus: Yes normal facial exam Mouth: moist mucous membranes Throat: Yes tonsils normal Eyes Conjunctivae: conjunctivae normal Pupils: Equal, round and reactive pupils present and Pupil accommodation reflex normal Direct Ophthalmoscopy: normal light reflex Neck Neck: No lymphadenopathy Thyroid: Thyroid normal Chest Chest palpation & inspection: normal inspection of the chest Resp Effort & Inspection: normal respiratory effort and no audible wheezes Auscultation: clear to auscultation bilaterally, no crackles, no wheezes and lung sounds not diminished Cardio Rate: regular rate Rhythm: regular rhythm Peripheral pulses: radial pulses present and dorsalis pedis present GI Palpation (GI): no masses Auscultation: normal bowel sounds and normoactive bowel sounds Rectal Exam - Male: Yes deferred Skin General skin exam: no rashes or lesions noted Rashes: no rashes Neuro General: No confusion Cranial nerves: Yes Equal, round and reactive pupils present and Yes Normal hearing present Cognition (Neuro): normal cognition Gait exam (Neuro): Normal gait present Motor exam (neuro): 5/5 motor strength present throughout Deep tendon reflexes (DTR's): Right brachioradialis reflex intensity grade: 2+, Left brachioradialis reflex intensity grade: 2+, Right patellar reflex intensity grade: 2+ and Left patellar reflex intensity grade: 2+ Extrem General: No edema Office Procedures Flu Questionnaire Does the patient have a severe egg allergy?: No Does the patient have severe life threatening allergies?: No Does the patient have a fever or illness today?: No Has the patient ever had Guillain-[place] Syndrome?: No Has the patient ever had any past reaction to a flu shot?: No Immunizations Fluarix Triv 5325-2370 (PF) 45 mcg (15 mcg x 3)/0.5 mL IM syringe Performing Provider: Ortega Pike MD Performing Location: [facility] [place] Adult Primary [facility] Administered by: Missy Sim CMA on 07/20/24 17:04 Dose Route Admin Location Dispensed Lot Number Expiration Date [facility] [employer] 0.5 mL IM Left Deltoid 0.5 mL [id number] 12/13/24 [id number] [employer] VIS Given Date VIS Provided VIS Publication Date 07/20/24 Single Vaccine 21 Eligibility Eligibility Date Funding Source Not VF Eligible 07/20/24 Private Coding Level of Care Code Est Pt Prev Care 40-64y(50572) Diagnoses Annual physical exam Z00.00 Gastroesophageal reflux disease without esophagitis K21.9 Esophagitis presence: without esophagitis Mixed hyperlipidemia E78.2 Hyperlipidemia type: mixed hyperlipidemia Obesity (BMI 30.0-34.9) E66.811 Benign prostatic hyperplasia without lower urinary tract symptoms N40.0 Lower urinary tract symptom presence: symptoms absent Additional Codes ADITYA-7 Assessment Billing - ADITYA-7 Assessment Tool: ADITYA-7 Assessment 55066 ([id number]) PHQ-9 - 40230 - PHQ-9 Billing: Yes ([id number]) Assessment & Plan Assessment & Plan (1) Annual physical exam: Code(s): Z00.00 - Encounter for general adult medical examination without abnormal findings Category: Medical (2) GERD (gastroesophageal reflux disease): Comment: [facility] surveillance Code(s): K21.9 - Gastro-esophageal reflux disease without esophagitis Category: Medical Qualifiers: Esophagitis presence: without esophagitis Qualified Code(s): K21.9 - Gastro-esophageal reflux disease without esophagitis (3) Hyperlipidemia: Code(s): E78.5 - Hyperlipidemia, unspecified Category: Medical Qualifiers: Hyperlipidemia type: mixed hyperlipidemia Qualified Code(s): E78.2 - Mixed hyperlipidemia (4) Obesity (BMI 30.0-34.9): Code(s): E66.811 - Obesity, class 1 Category: Medical (5) BPH (benign prostatic hyperplasia): Comment: 2014 Code(s): N40.0 - Benign prostatic hyperplasia without lower urinary tract symptoms Category: Medical Qualifiers: Lower urinary tract symptom presence: symptoms absent Qualified Code(s): N40.0 - Benign prostatic hyperplasia without lower urinary tract symptoms Plan: will order for US bladder Plan - Perform ultrasound to evaluate benign prostatic hyperplasia. - Switch pravastatin to atorvastatin for improved cholesterol management. - Continue dietary modifications for GERD management. - Follow-up in three months for cholesterol retesting. - Address stiffness with recommended exercises and stretches. - Consider further counseling and monitoring of marijuana use. We discussed the current management strategies for hypercholesterolemia and the potential need for medication adjustment given the history of atherosclerosis. The patient understands the importance of lowering LDL levels further to mitigate cardiovascular risk. Dietary management of GERD was reviewed, including specific triggers and lifestyle changes to reduce symptoms. I emphasized the importance of exercise and physical activity in managing obesity and associated stiffness. The patient has been informed about the risks of marijuana use and the potential impact on cardiovascular health and post-surgical outcomes. We discussed the next steps regarding prostate health, which include an ultrasound. We reviewed vaccination recommendations, and the importance of flu vaccination was highlighted. I advised the patient to report any significant changes in symptoms and to follow up as planned. - Follow the prescribed medication changes and continue with atorvastatin. - Adhere to dietary recommendations to manage GERD. - Incorporate regular physical activity into your routine to manage weight and reduce stiffness. - Schedule and complete the ultrasound for prostate evaluation. - Monitor any new or worsening symptoms and report them. - Stay up to date with vaccinations, including receiving a flu shot. - Follow up with blood work in three months to reassess cholesterol levels. - Consider the risks associated with recreational marijuana use. - Maintain regular follow-ups for ongoing health assessment and management. Orders: Orders Lipid Panel 3 Months E78.00 - Pure hypercholesterolemia, unspecified, E78.2 - Mixed hyperlipidemia Prostate Specific Antigen Scr 3 Months N40.0 - Benign prostatic hyperplasia without lower urinary tract symptoms Influenza [id number] Immunization Today Z23 - Encounter for immunization US bladder Today N40.0 - Benign prostatic hyperplasia without lower urinary tract symptoms Comprehensive Met. Panel 3 Months E78.2 - Mixed hyperlipidemia Medications: New atorvastatin 20 mg PO DAILY 30 tabs 4RF E78.2 - Mixed hyperlipidemia Discontinued pravastatin Discontinued Reason: Doctor's Order 20 mg PO DAILY 90 tabs 2RF
== END 2024-07-20 17:10 | disposition home or self-care (01) ==
PROVIDERS: PCP Internal Medicine; Visit Provider Internal Medicine
DX: Z00.00 Encounter for general adult medical examination without abnormal findings (principal); Z68.30 Body mass index [BMI] 30.0-30.9, adult; E66.811 Obesity, class 1; K21.9 Gastro-esophageal reflux disease without esophagitis; E78.2 Mixed hyperlipidemia; N40.0 Benign prostatic hyperplasia without lower urinary tract symptoms; Z23 Encounter for immunization

== ENCOUNTER → 2024-07-20 16:12 | Outpatient (BNVA) | payer OTHER, SELFPAY | PROVIDERS: PCP Internal Medicine; Visit Provider Internal Medicine | DX: Z00.00 Encounter for general adult medical examination without abnormal findings (principal); Z23 Encounter for immunization; K21.9 Gastro-esophageal reflux disease without esophagitis; E78.2 Mixed hyperlipidemia; E66.811 Obesity, class 1; Z68.30 Body mass index [BMI] 30.0-30.9, adult; N40.0 Benign prostatic hyperplasia without lower urinary tract symptoms; Z71.3 Dietary counseling and surveillance | CPT/HCPCS: 90471; 90656; 96127; 99396 ==

== ENCOUNTER 2024-07-30 15:25 | Outpatient (REF) | payer OTHER, SELFPAY ==
--- NOTE | ~2024-07-30 | US_ITS ---
CLINICAL HISTORY: N40.0 - Benign prostatic hyperplasia without lower urinary tract symptoms US Urinary Bladder Comparison: None Findings: The urinary bladder is unremarkable. Prevoid volume: 211 mLPostvoid volume: 9.5 mL Ureteral jets are visualized bilaterally. Prominent prostate. IMPRESSION: Normal urinary bladder. No significant postvoid residual. This document has been electronically signed by: Marissa Blancas MD on 08/03/2024 08:57:43
== END 2024-07-30 15:26 | disposition home or self-care (01) ==
LOC: HO.HMGCX 15:25
PROVIDERS: PCP Internal Medicine; Visit Provider Internal Medicine
DX: N40.0 Benign prostatic hyperplasia without lower urinary tract symptoms (principal)
CPT/HCPCS: 76857

== ENCOUNTER → 2024-07-30 15:26 | Outpatient (BNV) | payer OTHER, SELFPAY | PROVIDERS: PCP Internal Medicine; Visit Provider Radiology Diagnostic Radiology | DX: N40.0 Benign prostatic hyperplasia without lower urinary tract symptoms (principal) | CPT/HCPCS: 76857 ==

== ENCOUNTER 2025-03-01 20:09 | Emergency (ER) | payer OTHER, SELFPAY ==
[2025-03-01 20:12] VITALS: BP 141/71; PULSE 72; RESP 16; TEMP 36.6; O2SAT 98; BMI 29.5
[2025-03-01 20:49] LABS: MANUAL DIFF FLAG NO
[2025-03-01 20:54] LABS: Hematocrit 43.7 % (42.0-52.0); Hemoglobin 14.7 g/dl (14.0-18.0); Imm Gran Abs Auto 0.01 X10*3/uL (0.00-0.03); Imm Gran Pct Auto 0.1 % (0.0-0.4); Lymphocytes Absolute Auto 2.4 X10*3/uL (1.2-4.9); Mean Corpuscular HGB Conc 33.6 g/dl (31.0-36.0); Mean Corpuscular Hemoglobin 27.4 pg (27.0-33.0); Mean Corpuscular Volume 81.5 fL (80.0-98.0); NRBC Abs Auto 0.000 X10*3/uL (0.0-0.012); NRBC Pct Auto 0.0 /100WBC (0.0-0.2); Platelet Count 208 X10*3/uL (160-400); Red Blood Count 5.36 X10*6/uL (4.60-5.80); White Blood Count 8.0 X10*3/uL (4.8-10.8)
[2025-03-01 20:55] LABS: Appearance Urine Clear; Glucose Urine UA Negative (Negative); PH 5.5 (5.0-9.0); Specific Gravity - Urine 1.020 (1.005-1.025)
[2025-03-01 21:04] LABS: Alanine Aminotransferase 33 U/L (0-40); Albumin Level 4.0 g/dL (3.5-5.0); Alkaline Phosphatase 70 U/L (39-117); Anion Gap 10 (12-20); Aspartate Amino Transferase 25 U/L (5-37); Blood Urea Nitrogen 18 mg/dL (9-16); Calcium 8.9 mg/dL (8.4-10.2); Carbon Dioxide 30 mmol/L (22-29); Chloride 106 mmol/L (96-108); Creatinine Clr Calc Pharmacy 71.3; Estimated Glomerular Filt Rate > 60; Lipase 20 U/L (8-78); Potassium 4.2 mmol/L (3.3-5.1); Sodium 142 mmol/L (135-145); Total Protein 6.6 g/dL (6.5-8.0)
[2025-03-01 21:14] VITALS: BP 124/76; PULSE 66; RESP 20; TEMP 36.8; O2SAT 98
[2025-03-01] MEDS: Magnesium Hydrox/Alum Hydrox 30 ML ORAL.SUSP PO (23:34)
[2025-03-02 00:10] VITALS: BP 117/74; PULSE 52; RESP 20; O2SAT 99
--- NOTE | 2025-03-02 00:22 | ED_ITS ---
HPI - Abdominal Pain General Chief Complaint: Abdominal Pain Stated Complaint: Abdominal pain Time Seen by Provider: 03/01/25 21:31 Source: patient Mode of arrival: ambulatory Limitations: no limitations History of Present Illness ED Provider: Dr. Leah Solares HPI narrative: 50-year-old male with a history of GERD presenting with lower abdominal discomfort that he describes as a bloating sensation and constipation ongoing for the last several weeks. Admits that he has had this issue in the past as well. Has an appointment with his GI specialist in April. Has been having a difficult time getting in to see someone. Admits he has not been taken anything for his constipation at home. Denies hematochezia or melena. No reported fever. Describes nausea and poor appetite but no vomiting. Denies chest pain, difficulty breathing, cough or cold-type symptoms, known sick contacts or travel. No recent antibiotic use. Related Data Home Medications ?Medication ?Instructions ?Recorded ?Confirmed multivitamin 1 tab PO DAILY 04/03/2010/08 Previous Rx's ?Medication ?Instructions ?Recorded clotrimazole 1 % topical cream 1 appl topical BID 4 we eks #45 02/26/22 grams triamcinolone acetonide 0.5 % 1 appl topical BID 7 day s #15 grams 07/08/22 topical cream atorvastatin 20 mg tablet 20 mg PO DAILY #90 tabs 02/07 tamsulosin 0.4 mg capsule (Flomax) 0.4 mg PO BEDTIME # 30 caps 03/02/25 dicyclomine 20 mg tablet 20 mg PO TID #30 tabs omeprazole 40 mg capsule,delayed 40 mg PO DAILY #30 ca ps 03/04/25 release Allergies Allergy/AdvReac Type Severity Reaction Status Date / Time iodine (IODINE) Allergy Mild RASH Verified 03/04/25 16:08 Review of Systems Review of Systems As per HPI, full review of systems performed and negative but for the above mentioned pertinent positives and negatives. [facility] Past Medical History Medical History Colon cancer screening Atherosclerosis Allergic rhinitis Hyperlipidemia GERD (gastroesophageal reflux disease) Surgical History Hx of colonoscopy Hx of esophagogastroduodenoscopy History of vasectomy Family History Family History Father Alive and well Mother Hypertension Depression Paternal Aunt Breast cancer Diabetes Sister Breast cancer Paternal Grandmother Myocardial infarct Social History Social History Housing: House Alcohol intake: current Alcohol intake frequency: a few times a month Comment: once to twice a month- 3 drinks Patient Tobacco Use Status: Never used Tobacco Years Smoked: does Marijuana e-Cigarette/Vaping Use: Never Used Second Hand Smoke Exposure: No service: No Current occupational status: employed Cognitive needs: No Hearing needs: No Vision needs: No Physical Exam ED Exam Exam: GENERAL: Well-Appearing, conversant, no acute distress. SKIN: Normal skin color for ethnicity, warm, dry, no rashes noted. HEENT: Normocephalic, atraumatic, no stridor, posterior oropharynx nonerythematous, dentition intact, EOMI. NECK: Soft, supple, full ROM, midline structures nontender, no step-offs, no deformities, no lymphadenopathy. CHEST: Heart regular rate and rhythm, no murmurs, symmetric chest rise and fall. PULMONARY: Clear to auscultation bilaterally, no labored breathing, no wheezes/rhales/rhonchi. ABDOMINAL: Soft, nondistended, nontender, positive bowel sounds in all quadrants. : Deferred. MUSCULOSKELETAL: Normal tone, full range of motion, no deformities, no peripheral edema. NEURO: Alert and oriented x3, CN II through XII intact, equal strength and sensation bilateral upper and lower extremities, no focal neurologic deficits. PSYCHIATRIC: Normal affect, fluid speech, good eye contact and appropriate demeanor. Vital Signs: Vital Signs - 24 hr 03/01/25 20:12 03/01/25 21:14 03/02/25 00:10 Temperature 98 F 98.2 F Pulse Rate 72 66 52 Respiratory Rate 16 20 20 Blood Pressure 141/71 H 124/76 117/74 Pulse Oximetry 98 98 99 Oxygen Delivery Method Room Air Nasal Cannula Room Air Room Air BMI result Body Mass Index 29.5 Medical Decision Making Medical Decision Making MDM Narrative: This patient presents today with a chief complaint of abdominal pain. Differential diagnosis for this patient is broad. It includes appendicitis, cholecystitis, bowel obstruction, peptic ulcer disease, pyelonephritis, vascular pathology, among many others. A broad-based workup based on history and physical examination was obtained. Clinical picture is most consistent with IBS. Patient has intermittent diarrhea and constipation. He has an appointment with a software quality automation engineer but not for several months. Encouraged him to follow up with the primary care and to call for an earlier appointment. Using shared decision making, plan for discharge home to follow-up with primary care and/or specialist. Patient understands and agrees with plan for discharge. Discharged home in stable condition. Differential Diagnosis Differential Diagnoses: The differential diagnosis associated with the presentation includes (As above) Admission/Observation Consideration of admission/observation: Escalation of care including admission/observation considered Lab Data MDM Lab Attestation statement: I reviewed the patient's lab results. 03/01/25 20:37 03/01/25 20:37 Labs: Lab Results 03/01/25 03/01/25 Range/Units 20:37 20:42 WBC 8.0 (4.8-10.8) X10*3/uL RBC 5.36 (4.60-5.80) X10*6/uL Hgb 14.7 (14.0-18.0) g/dl Hct 43.7 (42.0-52.0) % MCV 81.5 (80.0-98.0) fL MCH 27.4 (27.0-33.0) pg MCHC 33.6 (31.0-36.0) g/dl RDW 13.2 (11.0-16.0) % Plt Count 208 (160-400) X10*3/uL MPV 9.4 (9.4-12.4) fL Immature Gran % (Auto) 0.1 (0.0-0.4) % Neut % (Auto) 56.7 (45-73) % Lymph % (Auto) 29.7 (20-40) % [place] % (Auto) 10.8 (2-11) % Eos % (Auto) 2.1 (0-4) % Baso % (Auto) 0.6 (0-2) % Lymph # (Auto) 2.4 (1.2-4.9) X10*3/uL [place] # (Auto) 0.9 (0.1-1.2) X10*3/uL Eos # (Auto) 0.2 (0.0-0.4) X10*3/uL Baso # (Auto) 0.1 (0.0-0.2) X10*3/uL Abs Immat Gran (auto) 0.01 (0.00-0.03) X10*3/uL Absolute Neuts (auto) 4.5 (2.0-8.3) x10*3/uL Absolute Nucleated RBC 0.000 (0.0-0.012) X10*3/uL Nucleated RBC % (auto) 0.0 (0.0-0.2) /100WBC Sodium 142 (135-145) mmol/L Potassium 4.2 (3.3-5.1) mmol/L Chloride 106 (96-108) mmol/L Carbon Dioxide 30 H (22-29) mmol/L Anion Gap 10 L (12-20) BUN 18 H (9-16) mg/dL Creatinine 1.21 (0.5-1.4) mg/dL Estim Creat Clear Calc 71.3 Estimated GFR > 60 Random Glucose 66 (60-115) mg/dL Calcium 8.9 (8.4-10.2) mg/dL Total Bilirubin 0.4 (0.0-1.0) mg/dL Direct Bilirubin 0.1 (0.0-0.5) mg/dL AST 25 (5-37) U/L ALT 33 (0-40) U/L Alkaline Phosphatase 70 (39-117) U/L Total Protein 6.6 (6.5-8.0) g/dL Albumin 4.0 (3.5-5.0) g/dL Lipase 20 (8-78) U/L Urine Color Yellow Urine Appearance Clear Urine pH 5.5 (5.0-9.0) Ur Specific [place] 1.020 (1.005-1.025) Urine Protein Negative (Neg-Trace) mg/dL Urine Glucose (UA) Negative (Negative) mg/dL Urine Ketones Negative (Negative) mg/dL Urine Blood Negative (Negative) Urine Nitrite Negative (Negative) Ur Leukocyte Esterase Negative (Negative) External Record Review External record reviewed: Inpatient record Prescription Management I considered prescription management with: Pain Medication and Other (Antiemetics) Chronic Conditions Patient?s care impacted by: Other (GERD, BPH) Medications Administered Discontinued Medications Generic Name Dose Route Start Last Admin Trade Name Freq PRN Reason Stop Dose Admin Al Hydroxide/Mg Hydroxide 30 ml 03/01/25 23:20 03/01/25 23:34 Magnesium Hydrox/Alum Hydrox 30 Ml Oral.Susp PO 03/01/25 23:21 30 ml ONCE ONE Administration Dicyclomine HCl 20 mg 03/01/25 23:20 03/01/25 23:34 Dicyclomine Hcl 10 Mg Capsule PO 03/01/25 23:21 20 mg ONCE ONE Administration Tamsulosin HCl 0.4 mg 03/01/25 23:20 03/01/25 23:36 Tamsulosin Hcl 0.4 Mg Capsule PO 03/01/25 23:21 0.4 mg ONCE ONE Administration Discharge Plan Discharge Clinical Impression: Increased urinary frequency, Irritable bowel, Abdominal bloating with cramps BPH (benign prostatic hyperplasia) Qualifiers: Lower urinary tract symptom presence: symptoms absent Qualified Code(s): N40.0 - Benign prostatic hyperplasia without lower urinary tract symptoms Patient Disposition: Home, Self-Care Instructions: Irritable Bowel Syndrome (ED), Enlarged Prostate (BPH) (ED) Additional Instructions: Call your doctor's office in the morning to arrange for earlier appointment than April. Use Flomax once a day to help with urinary frequency. Use dicyclomine for abdominal cramping. Return to the ER with any new or worsening symptoms including: Worsening abdominal pain, fevers greater than 100?, inability to tolerate food or drink, any new symptom that concerns you. Call 911 with any medical emergency. Prescriptions: New tamsulosin [Flomax] 0.4 mg capsule 0.4 mg PO BEDTIME Qty: 30 0RF No Action atorvastatin 20 mg tablet 20 mg PO DAILY Qty: 90 1RF multivitamin Tablet 1 tab PO DAILY triamcinolone acetonide 0.5 % cream 1 appl topical BID 7 Days Qty: 15 0RF clotrimazole 1 % cream 1 appl topical BID 28 Days Qty: 45 0RF dicyclomine 20 mg tablet 20 mg PO TID Qty: 30 0RF omeprazole 40 mg capsule,delayed release(DR/EC) 40 mg PO DAILY Qty: 30 0RF Interventions: ED Discharge Assessment Last Done: 03/02/25 02:24 Discharge Date/Time: 03/02/25 02:25 Print Language: Slovenian
[2025-03-02 02:24] VITALS: BP 117/74; PULSE 52; RESP 20; TEMP 36.8; O2SAT 99
== END 2025-03-02 02:25 | disposition home or self-care (01) ==
PROVIDERS: Emergency Provider Emergency Medicine; PCP Internal Medicine
DX: N40.0 Benign prostatic hyperplasia without lower urinary tract symptoms (principal); R35.0 Frequency of micturition; K58.9 Irritable bowel syndrome, unspecified; K59.00 Constipation, unspecified; R14.0 Abdominal distension (gaseous)
CPT/HCPCS: 36415; 80048; 80076; 81003; 83690; 85025; 99283; 99284

== ENCOUNTER 2025-03-04 16:03 | Outpatient (AMB) | payer OTHER, SELFPAY ==
[2025-03-04 16:07] VITALS: BP 120/60; PULSE 76; O2SAT 98; BMI 29.6
--- NOTE | 2025-03-04 16:07 | MHC.PC.OV ---
Vital Signs 03/04/25 16:07 Height 5 ft 5 in Weight 178 lb BMI 29.6 BP 120/60 Blood Pressure Location Lt brachial Position Sitting Pulse 76 Pulse Oximetry (%) 98 Oxygen Delivery Method Room Air Intake Visit Re[place] [facility] [place] ABD Pain Physician Assistant Psychiatry Required: No Accompanied by: Self / Same As Patient Allergies iodine (IODINE) Allergy (Mild, Verified 03/04/25 16:08) RASH Tobacco use date assessed: 03/04/25 Dental Screening Dental Screen Date: 03/04/25 Did you have a dental visit in the last 12 months?: Yes Did you have a dental problem in the last 6 months where you did not have access to dental care?: No Was dental information given to patient?: No HPI HPI Comments History of Present Illness Details 50 y/o Male patient who presents to the clinic today for EDF. He was admitted at [facility] [place] [facility] for an evaluation and treatment of Abdominal Pain. Patient was diagnosed with IBS and BPH. He was discharged home with Flomax and Dicyclomine. Today Pt denies any Urinary symptoms, and does not know why he has to take Flomax. Pt reports abdominal cramping with no diarrhea or constipation. Denies nausea or vomiting. He started taking Dicyclomine and his Symptoms have greatly improved. Pt reports that when his Abdomen is bloated, it pushes on his Bladder causing Urinary Frequency, other morgan his Prostate is Fine . Reports that his PCP did check his Prostate and it was Fine . [facility] Medical History Colon cancer screening Atherosclerosis Allergic rhinitis Hyperlipidemia GERD (gastroesophageal reflux disease) Surgical History Hx of colonoscopy Hx of esophagogastroduodenoscopy History of vasectomy Family History Father Alive and well Mother Hypertension Depression Paternal Aunt Breast cancer Diabetes Sister Breast cancer Paternal Grandmother Myocardial infarct Social History Housing: House Alcohol intake: current Alcohol intake frequency: a few times a month Comment: once to twice a month- 3 drinks Patient Tobacco Use Status: Never used Tobacco Years Smoked: does Marijuana e-Cigarette/Vaping Use: Never Used Second Hand Smoke Exposure: No service: No Current occupational status: employed Cognitive needs: No Hearing needs: No Vision needs: No Questionnaire Thrive Questionnaire Date Thrive assessed: 07/20/24 I am a: Patient What is your living situation today?: I have a steady place to live Within the past 12 months, did the food you bought not last and you didn't have the money to get more?: I choose not to answer this question Within the past 12 months, did you worry whether your food would run out before you got money to buy more?: I choose not to answer this question Do you have trouble paying for medicines?: I choose not to answer this question Do you have trouble getting transportation to medical appointments?: I choose not to answer this question Do you have trouble paying your heating and electricity bill?: I choose not to answer this question Do you have trouble taking care of your child, family member or friend?: I choose not to answer this question Do you have trouble with day-to-day activities such as bathing, preparing meals, shopping, managing finances, etc.?: I choose not to answer this question Are you currently unemployed and looking for a job?: I choose not to answer this question Are you interested in more education?: I choose not to answer this question Please select the resources that you would like help with: None Currently or been in a relationship where the following occur: I choose not to answer THRIVE Score: 0 ADITYA-7 AMB Questionnaire ADITYA-7 Date ADITYA - 7 assessed: 07/20/24 Source: Developed by Drs. Ramírez Dawson, Carri Marie, Gonzalo العلي and colleagues, with an educational faustino from [employer]. Review of Systems Const All systems reviewed & are unremarkable except as noted in HPI and below Physical exam (Primary Care) Vital Signs: Last Vital Signs Pulse 76 03/04/25 16:07 BP 120/60 03/04/25 16:07 Pulse Ox 98 03/04/25 16:07 Oxygen Delivery Method Room Air 03/04/25 16:07 BMI result Body Mass Index 29.6 Tobacco/Smoking Status: Tobacco use Status Tobacco use date assessed 03/04/25 03/04/25 16:15 Patient Tobacco Use Status Never used Tobacco 03/04/25 16:15 e-Cigarette/Vaping Use Never Used 03/04/25 16:15 Thrive Assessment: Date of Thrive Assessment Date Thrive assessed 07/20/24 03/04/25 16:15 Currently or been in a relationship where the following occur: I choose not to answer Const General: no acute distress Nutritional Appearance: well nourished Orientation/consciousness: patient oriented x3 Resp Effort & Inspection: normal respiratory effort Auscultation: clear to auscultation bilaterally Cardio Heart sounds: S1 normal heart sound present and S2 normal heart sound present GI Other: Large and obese abdomen. Palpation (GI): Soft to palpation, not firm, Tenderness to palpation present (GI) periumbilically and suprapubicly, no guarding, not rigid, No hepatosplenomegaly present and Hernia present Auscultation: normal bowel sounds Other: Rectal exam Deferred. Neuro General: patient oriented x3, gait normal and moves all extremities Psych Speech and movement: Normal speech and movement present Coding Level of Care Code Est Pt Level 4 (15217) Diagnoses Irritable bowel syndrome, unspecified type K58.9 Irritable bowel syndrome type: unspecified Benign prostatic hyperplasia without lower urinary tract symptoms N40.0 Lower urinary tract symptom presence: symptoms absent Time Spent (min) 20 Assessment & Plan Assessment & Plan (1) Irritable bowel: Code(s): K58.9 - Irritable bowel syndrome, unspecified Category: Medical Qualifiers: Irritable bowel syndrome type: unspecified Qualified Code(s): K58.9 - Irritable bowel syndrome, unspecified Plan: Continue taking Dicyclomine as ordered. Symptoms have been improving (2) BPH (benign prostatic hyperplasia): Code(s): N40.0 - Benign prostatic hyperplasia without lower urinary tract symptoms Category: Medical Qualifiers: Lower urinary tract symptom presence: symptoms absent Qualified Code(s): N40.0 - Benign prostatic hyperplasia without lower urinary tract symptoms Plan: Advised Pt to Stop the Flomax if he does not have any urinary symptoms. Advised to return to the clinic if he does develop urinary symptoms. Medications: New omeprazole 40 mg PO DAILY 30 caps 0RF K21.9 - Gastro-esophageal reflux disease without esophagitis Refilled dicyclomine 20 mg PO TID 30 tabs 0RF K58.9 - Irritable bowel syndrome, unspecified
== END 2025-03-04 16:55 | disposition home or self-care (01) ==
LOC: HO.HMCH 16:04
PROVIDERS: PCP Internal Medicine; Visit Provider Nurse Practitioner Family
DX: K58.9 Irritable bowel syndrome, unspecified (principal); N40.0 Benign prostatic hyperplasia without lower urinary tract symptoms

== ENCOUNTER → 2025-03-04 16:03 | Outpatient (BNVA) | payer OTHER, SELFPAY | PROVIDERS: PCP Internal Medicine; Visit Provider Nurse Practitioner Family | DX: N40.0 Benign prostatic hyperplasia without lower urinary tract symptoms (principal); K58.9 Irritable bowel syndrome, unspecified; R14.0 Abdominal distension (gaseous); R35.0 Frequency of micturition; K21.9 Gastro-esophageal reflux disease without esophagitis | CPT/HCPCS: 99212 ==

== ENCOUNTER 2025-03-11 16:27 | Emergency (ER) | payer OTHER, SELFPAY ==
--- NOTE | ~2025-03-11 | CT_ITS ---
CLINICAL HISTORY: low abd pain CT abdomen and pelvis without contrast Comparison: None provided Findings: Moderately enlarged prostate. Normal urinary bladder. Kidneys and ureters normal. Unremarkable gallbladder, liver, spleen, pancreas, and adrenal glands. No significant abnormality of the stomach, small bowel, appendix, or colon. No aortic aneurysm. Bones intact. Lung bases clear. IMPRESSION: Moderately enlarged prostate. No acute finding. This document has been electronically signed by: Ancelmo Perdomo MD on 03/11/2025 22:09:25
[2025-03-11 16:45] VITALS: BP 123/65; PULSE 85; RESP 18; TEMP 36.9; O2SAT 97; BMI 29.1
--- NOTE | 2025-03-11 16:45 | ED.GENADULT ---
HPI - General Adult General Chief complaint: Abdominal Pain Stated complaint: Abdominal pain Time Seen by Provider: 03/11/25 20:47 Source: patient History of Present Illness HPI narrative: 50-year-old male who has a history of BPH, history of diverticulosis, constipation, GERD, possible IBS, presents for evaluation of abdominal pain. Patient states he has had a proximally 1 month of abdominal pain. It is sharp in nature waxing and waning in intensity and primary located in the lower abdomen. Patient states due to the persistent nature of symptoms and he was more uncomfortable today than normal prompted him to come to the emergency department. He denies any fevers chills nausea or vomiting. No dysuria or hematuria. No diarrhea. Patient was seen in the emergency department proximally 10 days ago for the same symptoms. Reports having Flomax which did not offer much relief. He is scheduled to see GI in April. He is eating and drinking normally and having normal bowel movements. No abdominal surgery. Related Data Home Medications ?Medication ?Instructions ?Recorded ?Confirmed multivitamin 1 tab PO DAILY 04/03/20 07/20/24 Previous Rx's ?Medication ?Instructions ?Recorded clotrimazole 1 % topical cream 1 appl topical BID 4 weeks #45 02/26/22 grams triamcinolone acetonide 0.5 % 1 appl topical BID 7 days #15 grams 07/08/22 topical cream atorvastatin 20 mg tablet 20 mg PO DAILY #90 tabs 10/21/24 tamsulosin 0.4 mg capsule (Flomax) 0.4 mg PO BEDTIME #30 caps 03/02/25 dicyclomine 20 mg tablet 20 mg PO TID #30 tabs 03/04/25 omeprazole 40 mg capsule,delayed 40 mg PO DAILY #90 caps 03/11/25 release sulfamethoxazole 400 1 tab PO BID 10 days #20 tabs 03/11/25 mg-trimethoprim 80 mg tablet (Bactrim) Allergies Allergy/AdvReac Type Severity Reaction Status Date / Time iodine (IODINE) Allergy Mild RASH Verified 03/11/25 16:47 Review of Systems Review of Systems: Yes all other systems are reviewed and are negative Respiratory: Respiratory: Denies cough Gastrointestinal: Gastrointestinal: Reports abdominal pain, Denies constipation and Denies diarrhea PMFSH Past Medical History Medical History Colon cancer screening Atherosclerosis Allergic rhinitis Hyperlipidemia GERD (gastroesophageal reflux disease) Surgical History Hx of colonoscopy Hx of esophagogastroduodenoscopy History of vasectomy Family History Family History Father Alive and well Mother Hypertension Depression Paternal Aunt Breast cancer Diabetes Sister Breast cancer Paternal Grandmother Myocardial infarct Social History Social History Housing: House Alcohol intake: current Alcohol intake frequency: a few times a month Comment: once to twice a month- 3 drinks Patient Tobacco Use Status: Never used Tobacco Years Smoked: does Marijuana e-Cigarette/Vaping Use: Never Used Second Hand Smoke Exposure: No service: No Current occupational status: employed Cognitive needs: No Hearing needs: No Vision needs: No Physical Exam ED Vital Signs: Vital Signs - 24 hr 03/11/25 16:45 03/11/25 18:30 03/11/25 21:09 Temperature 98.5 F 98.3 F Pulse Rate 85 60 65 Respiratory Rate 18 16 20 Blood Pressure 123/65 124/80 126/77 Pulse Oximetry 97 99 97 Oxygen Delivery Method Room Air Room Air Room Air 03/11/25 23:39 Temperature 97.9 F Pulse Rate 69 Respiratory Rate 16 Blood Pressure 104/68 Pulse Oximetry 98 Oxygen Delivery Method Room Air BMI result Body Mass Index 29.1 Const General: cooperative, alert and awake Resp Other: Lung sounds clear Cardio Other: Regular rate and rhythm GI Other: Abdomen is soft with mild suprapubic tenderness. No peritoneal signs. Hyperactive bowel sounds. Other: Rectal exam does not reveal any external hemorrhoids. Normal rectal tone. Prostate is firm, diffuse tenderness. Unable to appreciate any fluctuant or nodules. Course Course Course Narrative: RME, this is a rapid medical exam performed by Maikel Ramos please refer to primary provider for complete H&P- 50-year-old male presents for evaluation abdominal pain over the last 2 weeks. He was seen here on 03/02/2025. Denies any nausea vomiting, diarrhea. Plan for labs, urinalysis Reevaluation(s) Reevaluation #1: March 11, 2025, 9:30 p.m. patient reporting a iodine allergy where he has a rash. Currently the IV contrast dye is iodine based. We will change to noncontrast. CT results returned, prostatic enlargement. Patient states he is unaware of this previously. He had taken Flomax and states it had not offered any change in his symptoms. He denies having any difficulty with urination. At this time with the patient may put this medication. Urology referral will be provided. Rectal exam demonstrates a firm but tender prostate. Potential for prostatitis. We will empirically treat. Reviewed all discharge instructions. No further questions at this time. Medications Administered Discontinued Medications Generic Name Dose Route Start Last Admin Trade Name Enricoq PRN Reason Stop Dose Admin Al Hydroxide/Mg Hydroxide 30 ml 03/11/25 21:03 03/11/25 21:18 Magnesium Hydrox/Alum Hydrox 30 Ml Oral.Susp PO 03/11/25 21:04 30 ml ONCE ONE Administration Lidocaine HCl 15 ml 03/11/25 21:03 03/11/25 21:18 Lidocaine Hcl Viscous 2 % 15 Ml Solution MUCOUS MEM 03/11/25 21:04 15 ml ONCE ONE Administration Trimethoprim/Sulfamethoxazole 1 tab 03/11/25 23:11 03/11/25 23:38 Sulfamethox/Trimeth 800/160 Tablet PO 03/11/25 23:12 1 tab ONCE ONE Administration Medical Decision Making Medical Decision Making [facility] Narrative: 50-year-old male with approximate 1 month history of abdominal pain. He has not had any recent imaging, we will check abdominal CT. Labs are reassuring at this time. Urinalysis is unremarkable. He is not having any urinary symptoms. Abdomen is non focal. Lower suspicion for urinary etiology versus intestinal. Differential Diagnosis Differential Diagnoses: The differential diagnosis associated with the presentation includes Cystitis Nephrolithiasis Diverticulitis IBS Colitis Admission/Observation Consideration of admission/observation: Escalation of care including admission/observation considered Lab Data [facility] Lab Attestation statement: I reviewed the patient's lab results. 03/11/25 17:21 03/11/25 17:21 Labs: Lab Results 03/11/25 Range/Units 17:21 WBC 7.2 (4.8-10.8) X10*3/uL RBC 5.57 (4.60-5.80) X10*6/uL Hgb 15.2 (14.0-18.0) g/dl Hct 46.2 (42.0-52.0) % MCV 82.9 (80.0-98.0) fL MCH 27.3 (27.0-33.0) pg MCHC 32.9 (31.0-36.0) g/dl RDW 13.0 (11.0-16.0) % Plt Count 202 (160-400) X10*3/uL MPV 9.4 (9.4-12.4) fL Immature Gran % (Auto) 0.1 (0.0-0.4) % Neut % (Auto) 54.9 (45-73) % Lymph % (Auto) 33.0 (20-40) % [place] % (Auto) 9.9 (2-11) % Eos % (Auto) 1.7 (0-4) % Baso % (Auto) 0.4 (0-2) % Lymph # (Auto) 2.4 (1.2-4.9) X10*3/uL [place] # (Auto) 0.7 (0.1-1.2) X10*3/uL Eos # (Auto) 0.1 (0.0-0.4) X10*3/uL Baso # (Auto) 0.0 (0.0-0.2) X10*3/uL Abs Immat Gran (auto) 0.01 (0.00-0.03) X10*3/uL Absolute Neuts (auto) 4.0 (2.0-8.3) x10*3/uL Absolute Nucleated RBC 0.000 (0.0-0.012) X10*3/uL Nucleated RBC % (auto) 0.0 (0.0-0.2) /100WBC Sodium 141 (135-145) mmol/L Potassium 3.9 (3.3-5.1) mmol/L Chloride 107 (96-108) mmol/L Carbon Dioxide 26 (22-29) mmol/L Anion Gap 12 (12-20) BUN 13 (9-16) mg/dL Creatinine 1.15 (0.5-1.4) mg/dL Estim Creat Clear Calc 74.6 Estimated GFR > 60 Random Glucose 91 (60-115) mg/dL Calcium 9.2 (8.4-10.2) mg/dL Total Bilirubin 0.3 (0.0-1.0) mg/dL AST 21 (5-37) U/L ALT 26 (0-40) U/L Alkaline Phosphatase 72 (39-117) U/L Total Protein 6.9 (6.5-8.0) g/dL Albumin 4.2 (3.5-5.0) g/dL Lipase 16 (8-78) U/L Urine Color Yellow Urine Appearance Clear Urine pH 5.5 (5.0-9.0) Ur Specific [place] 1.015 (1.005-1.025) Urine Protein Negative (Neg-Trace) mg/dL Urine Glucose (UA) Negative (Negative) mg/dL Urine Ketones Negative (Negative) mg/dL Urine Blood Negative (Negative) Urine Nitrite Negative (Negative) Ur Leukocyte Esterase Negative (Negative) Urine RBC 0-2 (0-2) /HPF Urine WBC 0-5 (0-5) /HPF Ur Squamous Epith Cells 0-2 (0-2) /HPF Urine Bacteria None Seen (None Seen) Hyaline Casts 0-2 (0-2) /LPF Radiology Impression Discussion of test interpretation with radiology: I have reviewed the radiologist's reading. Radiologist Impression: [place] [id number] CT Scan Report Signed Patient: Isak Junior MR#: [id number] : 1975 Acct:[id number] Age/Sex: 50 / M ADM Date: 03/11/25 Loc: .ED Attending Dr: Ordering Physician: Guzman Pena Date of Service: 03/11/25 Procedure(s): CT abdomen pelvis wo IV con Accession Number(s): [id number] cc: Ortega Pike MD; Guzman Pena~ Report Number: [id number]: Total DLP = 448.00 mGy-cm Reason for Exam: low abd pain CLINICAL HISTORY: low abd pain CT abdomen and pelvis without contrast Comparison: None provided Findings: Moderately enlarged prostate. Normal urinary bladder. Kidneys and ureters normal. Unremarkable gallbladder, liver, spleen, pancreas, and adrenal glands. No significant abnormality of the stomach, small bowel, appendix, or colon. No aortic aneurysm. Bones intact. Lung bases clear. IMPRESSION: Moderately enlarged prostate. No acute finding. This document has been electronically signed by: Ancelmo Perdomo MD on 03/11/2025 22:09:25 Dictated By: Ancelmo Perdomo MD Signed By: <Electronically signed by Ancelmo Perdomo MD in OV> 03/11/252209 DD/ 08 TD/TT: 03/11/252208 [place] Buyer: Prescription Management I considered prescription management with: Pain Medication Discharge Plan Discharge Clinical Impression: Enlarged prostate Abdominal pain Qualifiers: Abdominal location: lower abdomen, unspecified Qualified Code(s): R10.30 - Lower abdominal pain, unspecified Patient Disposition: Home, Self-Care Instructions: Prostatitis (ED), Enlarged Prostate (BPH) (ED), Abdominal Pain (ED) Additional Instructions: Your blood work today and urine tests were in normal ranges. Your CAT scan showed that your prostate is enlarged. There can be many reasons for this. One recent may be infection. As a precaution you are being placed on an antibiotic, Bactrim. Finish all medication as directed. Follow up with urology referral. Call Friday to schedule follow up appointment. Follow-up with your primary care provider. Call this week to schedule a follow-up appointment. Return to the emergency department if you have any worsening of symptoms, or any concerns. Get well soon! Prescriptions: New sulfamethoxazole-trimethoprim [Bactrim] 400-80 mg tablet 1 tab PO BID 10 Days Qty: 20 0RF No Action atorvastatin 20 mg tablet 20 mg PO DAILY Qty: 90 1RF omeprazole 40 mg capsule,delayed release(DR/EC) 40 mg PO DAILY Qty: 90 0RF tamsulosin [Flomax] 0.4 mg capsule 0.4 mg PO BEDTIME Qty: 30 0RF multivitamin Tablet 1 tab PO DAILY triamcinolone acetonide 0.5 % cream 1 appl topical BID 7 Days Qty: 15 0RF clotrimazole 1 % cream 1 appl topical BID 28 Days Qty: 45 0RF dicyclomine 20 mg tablet 20 mg PO TID Qty: 30 0RF Referrals: Raman Sotelo MD [Physician, Urology] Interventions: ED Discharge Assessment Last Done: 03/11/25 23:39 Discharge Date/Time: 03/11/25 23:48 Print Language: Greenlandic
[2025-03-11 17:29] LABS: MANUAL DIFF FLAG NO
[2025-03-11 17:30] LABS: Hematocrit 46.2 % (42.0-52.0); Hemoglobin 15.2 g/dl (14.0-18.0); Imm Gran Abs Auto 0.01 X10*3/uL (0.00-0.03); Imm Gran Pct Auto 0.1 % (0.0-0.4); Lymphocytes Absolute Auto 2.4 X10*3/uL (1.2-4.9); Mean Corpuscular HGB Conc 32.9 g/dl (31.0-36.0); Mean Corpuscular Hemoglobin 27.3 pg (27.0-33.0); Mean Corpuscular Volume 82.9 fL (80.0-98.0); NRBC Abs Auto 0.000 X10*3/uL (0.0-0.012); NRBC Pct Auto 0.0 /100WBC (0.0-0.2); Platelet Count 202 X10*3/uL (160-400); Red Blood Count 5.57 X10*6/uL (4.60-5.80); White Blood Count 7.2 X10*3/uL (4.8-10.8)
[2025-03-11 17:34] LABS: Appearance Urine Clear; Glucose Urine UA Negative (Negative); PH 5.5 (5.0-9.0); Specific Gravity - Urine 1.015 (1.005-1.025)
[2025-03-11 17:44] LABS: Alanine Aminotransferase 26 U/L (0-40); Albumin Level 4.2 g/dL (3.5-5.0); Alkaline Phosphatase 72 U/L (39-117); Anion Gap 12 (12-20); Aspartate Amino Transferase 21 U/L (5-37); Blood Urea Nitrogen 13 mg/dL (9-16); Calcium 9.2 mg/dL (8.4-10.2); Carbon Dioxide 26 mmol/L (22-29); Chloride 107 mmol/L (96-108); Creatinine Clr Calc Pharmacy 74.6; Estimated Glomerular Filt Rate > 60; Lipase 16 U/L (8-78); Potassium 3.9 mmol/L (3.3-5.1); Sodium 141 mmol/L (135-145); Total Protein 6.9 g/dL (6.5-8.0)
[2025-03-11 18:30] VITALS: BP 124/80; PULSE 60; RESP 16; O2SAT 99
[2025-03-11 21:09] VITALS: BP 126/77; PULSE 65; RESP 20; TEMP 36.8; O2SAT 97
[2025-03-11] MEDS: Magnesium Hydrox/Alum Hydrox 30 ML ORAL.SUSP PO (21:18)
[2025-03-11] MEDS: Lidocaine HCl Viscous 2 % 15 ML SOLUTION MUCOUS MEM (21:18)
[2025-03-11] MEDS: Sulfamethox/Trimeth 800/160 TABLET 1 TAB PO (23:38)
[2025-03-11 23:39] VITALS: BP 104/68; PULSE 69; RESP 16; TEMP 36.6; O2SAT 98
== END 2025-03-11 23:48 | disposition home or self-care (01) ==
PROVIDERS: Physician Assistant; Emergency Provider Emergency Medicine; PCP Internal Medicine
DX: R10.30 Lower abdominal pain, unspecified (principal)
CPT/HCPCS: 36415; 74176; 80053; 81001; 83690; 85025; 99284

== ENCOUNTER → 2025-03-11 21:03 | Outpatient (BNV) | payer OTHER, SELFPAY | PROVIDERS: Emergency Provider Emergency Medicine; PCP Internal Medicine; Visit Provider Radiology Diagnostic Radiology | DX: N40.0 Benign prostatic hyperplasia without lower urinary tract symptoms (principal); R10.30 Lower abdominal pain, unspecified | CPT/HCPCS: 74176 ==

== ENCOUNTER 2025-04-25 07:01 | Outpatient (REF) | payer OTHER, SELFPAY ==
[2025-04-25 08:21] LABS: Alanine Aminotransferase 28 U/L (0-40); Albumin Level 4.4 g/dL (3.5-5.0); Alkaline Phosphatase 81 U/L (39-117); Anion Gap 12 (12-20); Aspartate Amino Transferase 26 U/L (5-37); Blood Urea Nitrogen 18 mg/dL (9-16); Calcium 9.6 mg/dL (8.4-10.2); Carbon Dioxide 28 mmol/L (22-29); Chloride 105 mmol/L (96-108); Cholesterol 143 mg/dL (<200); Estimated Glomerular Filt Rate > 60; HDL Cholesterol 40 mg/dL (>40); Potassium 4.5 mmol/L (3.3-5.1); Sodium 140 mmol/L (135-145); Total Protein 7.3 g/dL (6.5-8.0); Triglycerides 99 mg/dL (<150)
== END 2025-04-25 07:02 | disposition home or self-care (01) ==
LOC: HO.LAB 07:01
PROVIDERS: PCP Internal Medicine; Visit Provider Internal Medicine
DX: E78.2 Mixed hyperlipidemia (principal); N40.0 Benign prostatic hyperplasia without lower urinary tract symptoms
CPT/HCPCS: 36415; 80053; 80061; 84153

== ENCOUNTER 2025-04-29 15:21 | Outpatient (AMB) | payer OTHER, SELFPAY ==
[2025-04-29 15:27] VITALS: BP 130/82; PULSE 67; TEMP 36.8; O2SAT 99; BMI 28.6
--- NOTE | 2025-04-29 15:27 | MHC.PC.OV ---
Vital Signs 04/29/25 15:27 Height 5 ft 5 in Weight 172 lb BMI 28.6 BP 130/82 Blood Pressure Location Lt brachial Position Sitting Pulse 67 Pulse Source Pulse Oximeter Temp 98.3 F Temp Source Temporal Artery Scan Pulse Oximetry (%) 99 Oxygen Delivery Method Room Air Intake Visit Reasons: f/u Cabin Supervisor Required: No Accompanied by: Self / Same As Patient Allergies iodine (IODINE) Allergy (Mild, Verified 04/29/25 15:28) RASH Medication List - Last Reconciled 04/29/25 by Ortega Pike MD atorvastatin 20 mg PO DAILY clotrimazole 1% 1 appl topical BID 4 weeks multivitamin 1 tab PO DAILY omeprazole 40 mg PO DAILY triamcinolone acetonide 0.5% 1 appl topical BID 7 days Tobacco use date assessed: 03/04/25 Dental Screening Dental Screen Date: 03/04/25 Did you have a dental visit in the last 12 months?: No Did you have a dental problem in the last 6 months where you did not have access to dental care?: No Was dental information given to patient?: No PFSH Medical History Colon cancer screening Atherosclerosis Allergic rhinitis Hyperlipidemia GERD (gastroesophageal reflux disease) Surgical History Hx of colonoscopy Hx of esophagogastroduodenoscopy History of vasectomy Family History Father Alive and well Mother Hypertension Depression Paternal Aunt Breast cancer Diabetes Sister Breast cancer Paternal Grandmother Myocardial infarct Social History Housing: House Alcohol intake: current Alcohol intake frequency: a few times a month Comment: once to twice a month- 3 drinks Patient Tobacco Use Status: Never used Tobacco Tobacco use type: Cigarette Years Smoked: does Marijuana e-Cigarette/Vaping Use: Never Used Second Hand Smoke Exposure: No service: No Current occupational status: employed Cognitive needs: No Hearing needs: No Vision needs: No Questionnaire PHQ-9 Over the last 2 weeks, how often have you been bothered by any of the following problems? 1. Little interest or pleasure in doing things: not at all 2. Feeling down, depressed, or hopeless: not at all 3. Trouble falling or staying asleep, or sleeping too much: not at all 4. Feeling tired or having little energy: not at all 5. Poor appetite or overeating: not at all 6. Feeling bad about yourself - or that you are a failure or have let yourself or your family down: not at all 7. Trouble concentrating on things, such as reading the newspaper or watching television: not at all 8. Moving or speaking so slowly that other people could have noticed. Or the opposite - being so fidgety or restless that you have been moving around a lot more than usual: not at all 9. Thoughts that you would be better off or of hurting yourself in some way: not at all Total score: 0 Depression Screening Interpretation: Negative Depression Screening Done: Yes 34321 - PHQ-9 Billing: Yes Source: Developed by Drs. Ramírez Dawson, Carri Marie, Gonzalo العلي and colleagues, with an educational faustino from [employer]. Thrive Questionnaire Date Thrive assessed: 07/20/24 I am a: Patient What is your living situation today?: I have a steady place to live Within the past 12 months, did the food you bought not last and you didn't have the money to get more?: I choose not to answer this question Within the past 12 months, did you worry whether your food would run out before you got money to buy more?: I choose not to answer this question Do you have trouble paying for medicines?: I choose not to answer this question Do you have trouble getting transportation to medical appointments?: I choose not to answer this question Do you have trouble paying your heating and electricity bill?: I choose not to answer this question Do you have trouble taking care of your child, family member or friend?: I choose not to answer this question Do you have trouble with day-to-day activities such as bathing, preparing meals, shopping, managing finances, etc.?: I choose not to answer this question Are you currently unemployed and looking for a job?: I choose not to answer this question Are you interested in more education?: I choose not to answer this question Please select the resources that you would like help with: None Currently or been in a relationship where the following occur: I choose not to answer THRIVE Score: 0 AUDIT C Alcohol Use Questionnaire (AUDIT-C) 1. How often do you have a drink containing alcohol?: Monthly or less 2. How many drinks containing alcohol do you have on a typical day when you are drinking?: 5 or 6 3. How often do you have six or more drinks on one occasion?: Less than monthly Total Score: 4 ADITYA-7 AMB Questionnaire ADITYA-7 Date ADITYA - 7 assessed: 07/20/24 Feeling nervous, anxious, or on edge: 0 = Not at all Not being able to stop or control worryin = Not at all Worrying too much about different things: 0 = Not at all Trouble relaxin = Not at all Being so restless that it is hard to sit still: 0 = Not at all Becoming easily annoyed or irritable: 0 = Not at all Feeling afraid as if something awful might happen: 0 = Not at all Total ADITYA-7 score (0-4 normal; 5-9 mild; 10-14 moderate; 15-21 severe): 0 Source: Developed by Drs. Ramírez Dawson, Carri Marie, Gonzalo العلي and colleagues, with an educational faustino from [employer]. Physical exam (Primary Care) Vital Signs: Last Vital Signs Temp 98.3 F 04/29/25 15:27 Pulse 67 04/29/25 15:27 BP 130/82 04/29/25 15:27 Pulse Ox 99 04/29/25 15:27 Oxygen Delivery Method Room Air 04/29/25 15:27 BMI result Body Mass Index 28.6 Tobacco/Smoking Status: Tobacco use Status Tobacco use date assessed 03/04/25 04/29/25 15:33 Patient Tobacco Use Status Never used Tobacco 04/29/25 15:33 Tobacco use type Cigarette 04/29/25 15:33 e-Cigarette/Vaping Use Never Used 04/29/25 15:33 PHQ-9: PHQ-9 Score PHQ-9: Total score 0 04/29/25 15:52 Depression Screening Interpretation: Negative Thrive Assessment: Date of Thrive Assessment Date Thrive assessed 07/20/24 04/29/25 15:33 Currently or been in a relationship where the following occur: I choose not to answer Const General: alert; No acute distress Eyes Conjunctivae: conjunctivae normal Resp Auscultation: clear to auscultation bilaterally Cardio Rate: regular rate Rhythm: regular rhythm GI Inspection: Yes normal to inspection Extrem General: Yes normal to inspection and No edema Office Procedures Flu Questionnaire Does the patient have a severe egg allergy?: No Does the patient have severe life threatening allergies?: No Does the patient have a fever or illness today?: No Has the patient ever had Guillain-[place] Syndrome?: No Has the patient ever had any past reaction to a flu shot?: No Immunizations Fluarix [id number] (PF) 45 mcg (15 mcg x 3)/0.5 mL IM syringe Performing Provider: Ortega Pike MD [facility] Administered by: Missy Sim CMA on 04/29/25 16:10 Dose Route Admin Location Dispensed Lot Number Expiration Date NDC Contact Lens Cutter 0.5 mL IM Left Deltoid 0.5 mL [id number] 12/13/25 86311-809-07 Experticity VIS Given Date VIS Provided VIS Publication Date 04/29/25 Single Vaccine 24 Eligibility Eligibility Date Funding Source Not [facility] Eligible 04/29/25 Private Coding Level of Care Code Est Pt Level 4 (26924) Complex EM visit Add On G2211 Diagnoses Overweight (BMI 25.0-29.9) E66.3 Mixed hyperlipidemia E78.2 Hyperlipidemia type: mixed hyperlipidemia Gastroesophageal reflux disease without esophagitis K21.9 Esophagitis presence: without esophagitis Benign prostatic hyperplasia without lower urinary tract symptoms N40.0 Lower urinary tract symptom presence: symptoms absent Decreased libido R68.82 Additional Codes PHQ-9 - 99274 - PHQ-9 Billing: Yes ([id number]) Assessment & Plan Assessment & Plan (1) Overweight (BMI 25.0-29.9): Code(s): E66.3 - Overweight Category: Medical Plan: Diet and exercise (2) Hyperlipidemia: Code(s): E78.5 - Hyperlipidemia, unspecified Category: Medical Qualifiers: Hyperlipidemia type: mixed hyperlipidemia Qualified Code(s): E78.2 - Mixed hyperlipidemia Plan: Avoid fried foods, chicken skin, eggs, butter margarine, pastries and meat. Be it pork or beef they have a lot of cholesterol on atorvastatin 20 mg once a day (3) GERD (gastroesophageal reflux disease): Comment: [place] surveillance Code(s): K21.9 - Gastro-esophageal reflux disease without esophagitis Category: Medical Qualifiers: Esophagitis presence: without esophagitis Qualified Code(s): K21.9 - Gastro-esophageal reflux disease without esophagitis Plan: Avoid the foods that causes that usually spicy foods, tomato products, juices, coffee, soda and foods that your sensitive to. After eating do not lie down, allow 3-4 hours before in lie down. And keep the head of bed above 30 degrees to avoid the acid from going up. (4) BPH (benign prostatic hyperplasia): Code(s): N40.0 - Benign prostatic hyperplasia without lower urinary tract symptoms Category: Medical Qualifiers: Lower urinary tract symptom presence: symptoms absent Qualified Code(s): N40.0 - Benign prostatic hyperplasia without lower urinary tract symptoms Plan: Patient has been prescribed 10 Flomax to help with BPH (5) Decreased libido: Code(s): R68.82 - Decreased libido Category: Medical Plan: will testy for testosterone Plan History of Present Illness The patient is a 50-year-old male presenting for a follow-up of his chronic conditions including GERD, hypercholesterolemia, and BPH, and to discuss recent abdominal pain issues. He had an ER visit on March 11 for abdominal pain that had persisted for 2-[address] scan performed at that time showed prostate enlargement consistent with BPH, but no other acute findings. He was prescribed Flomax (tamsulosin), which he has since stopped on a provider's advice, and dicyclomine for abdominal pain, which he also discontinued as he felt it worsened his pain. The patient reports he is only taking his cholesterol medication, atorvastatin 20 mg, at this time. He has a history of GERD and was prescribed omeprazole, which he is not taking regularly as he denies recent heartburn. His last colonoscopy was in 2022, and he has a pending appointment with Urology. He complains of low sexual desire and some issues with erections, and he is concerned about having low testosterone. He also has a history of toenail fungus, previously treated with a cream, which is now recurring. Recent lab work from April 25 showed normal electrolytes, stable kidney function at 1.23, normal liver function, and a normal fasting blood sugar of 88. His LDL cholesterol has improved to 84. Socially, the patient drives a lot for work, which involves prolonged sitting. He is attempting dietary changes, including eating more carrots and kale for fiber, and has been walking more to increase his activity level. Health Maintenance The patient received an influenza vaccine during today's visit. He is scheduled for a full physical exam with comprehensive lab work in July. He was counseled on the benefits of a healthy diet and remaining physically active. Social History - Employment: The patient's work involves a lot of driving and prolonged sitting, which he believes contributes to his discomfort. - Nutrition: Reports sometimes eating junk food but is now trying to eat healthier by incorporating more fiber-rich foods like carrots and kale. - Exercise: He was previously more active and has recently started walking more to improve his health and gut motility. Review of Systems - Gastrointestinal: Reports intermittent central abdominal pain and excessive gas. - Genitourinary: He reports that he does not urinate normally. - Endocrine: Reports low libido. - Integumentary: Reports recurring toenail fungus. Physical Exam - Lungs: Clear to auscultation, per patient being instructed to breathe deeply. - Abdomen: Soft, non-tender to palpation in most quadrants. - There is mild tenderness on palpation of the left side of the abdomen. - Extremities: Visual inspection of a toenail shows findings suggestive of onychomycosis, which are noted to be not severe. Results - Labs (March 11): Normal CBC with no anemia, normal electrolytes, creatinine 1.23, normal blood sugar, normal liver function, LDL 84, triglycerides 99, and PSA 1.42. - Labs (April 25): Good electrolytes, stable kidney function (creatinine 1.23), normal liver function, and normal fasting blood sugar of 88. - Imaging (CT Scan, March 11): Showed prostate enlargement (BPH) as the only significant finding. Plan Patient was informed and verbally consented to the use of an ambient scribe for clinic note documentation during this visit. 1. Abdominal Pain The patient's abdominal pain and gas are likely related to gut motility, influenced by his sedentary job. He was advised to continue with lifestyle modifications, including increased physical activity and a diet rich in fiber, to improve symptoms. He has stopped taking dicyclomine due to side effects. 2. Hypercholesterolemia The patient is responding well to atorvastatin 20 mg, with his LDL cholesterol having decreased from 124 to 84. He will continue the current medication regimen. 3. Benign Prostatic Hyperplasia The patient has a known history of BPH, confirmed by a recent CT scan. He previously took Flomax but has discontinued it. He has an upcoming appointment with Urology for further management. 4. Low Libido The patient expressed concern about low libido and potential erectile issues. To investigate this, a blood test for testosterone level will be ordered, which the patient can have done at any time. 5. Onychomycosis The patient has a recurrence of toenail fungus. Oral antifungal medication was discussed as a treatment option. The plan is to check liver function with his next set of blood work before initiating the pill. Discussion Notes I reviewed the patient's recent history, including his ER visits for abdominal pain and the CT scan finding of an enlarged prostate. We discussed his medication history, noting he stopped taking tamsulosin and dicyclomine, and I advised him to keep omeprazole for any potential heartburn. I reviewed his recent labs from April 25, reassuring him that his kidney function, liver function, and blood sugar are normal, and highlighted the excellent response of his cholesterol to atorvastatin, with his LDL dropping from 124 to 84. Regarding his concern about low libido, I explained that we would check his testosterone level. We also discussed the plan for his recurrent toenail fungus, agreeing to check his liver function via blood work before considering an oral antifungal medication. I explained how a sedentary lifestyle can affect gut motility and encouraged him to continue increasing his physical activity. Finally, we administered the flu vaccine and confirmed his plans for a follow-up physical in July and his appointment with Urology. Patient Instructions - Continue taking your cholesterol medication, atorvastatin 20 mg, once a day. - You can get the blood test to check your testosterone level at any time. - Keep your omeprazole prescription and use it if you experience heartburn. - Make sure to attend your upcoming appointment with the urologist. - Try to continue increasing your physical activity, such as walking, as this can help with your stomach discomfort. - Focus on eating a healthy diet and drinking enough water. - You have an order for more blood work to be done in about three months, before your next physical exam in July. - We will check your liver function on the next blood test before deciding on a pill for your toenail fungus. Orders: Orders Prolactin Today N52.9 - Male erectile dysfunction, unspecified Comprehensive Met. Panel 3 Months E78.2 - Mixed hyperlipidemia Influenza 1203-4431 Immunization Today Z23 - Encounter for immunization Testosterone, Total Today N52.9 - Male erectile dysfunction, unspecified Complete Blood Count Auto Diff 3 Months E78.2 - Mixed hyperlipidemia Free T4 (Free Thyroxine) 3 Months E78.2 - Mixed hyperlipidemia Thyroid Stimulating Hormone 3 Months E78.2 - Mixed hyperlipidemia Lipid Panel 3 Months E78.00 - Pure hypercholesterolemia, unspecified, E78.2 - Mixed hyperlipidemia Vitamin B12 and Folate 3 Months E78.2 - Mixed hyperlipidemia Prostate Specific Antigen Scr 3 Months E78.2 - Mixed hyperlipidemia Medications: Discontinued sulfamethoxazole-trimethoprim 400-80 mg (Bactrim) Discontinued Reason: Patient Completed Course 1 tab PO BID 10 days 20 tabs 0RF
== END 2025-04-29 16:14 | disposition home or self-care (01) ==
LOC: HO.HMCH 15:22
PROVIDERS: PCP Internal Medicine; Visit Provider Internal Medicine
DX: E66.3 Overweight (principal); E78.2 Mixed hyperlipidemia; K21.9 Gastro-esophageal reflux disease without esophagitis; N40.0 Benign prostatic hyperplasia without lower urinary tract symptoms; R68.82 Decreased libido; Z23 Encounter for immunization

== ENCOUNTER → 2025-04-29 15:21 | Outpatient (BNVA) | payer OTHER, SELFPAY | PROVIDERS: PCP Internal Medicine; Visit Provider Internal Medicine | DX: E66.3 Overweight (principal); E78.2 Mixed hyperlipidemia; K21.9 Gastro-esophageal reflux disease without esophagitis; N40.0 Benign prostatic hyperplasia without lower urinary tract symptoms; R68.82 Decreased libido; R10.9 Unspecified abdominal pain; B35.1 Tinea unguium; N52.9 Male erectile dysfunction, unspecified; Z23 Encounter for immunization; Z68.28 Body mass index [BMI] 28.0-28.9, adult | CPT/HCPCS: 90471; 90656; 96127; 99212 ==

== ENCOUNTER 2025-05-11 13:28 | Outpatient (AMB) | payer OTHER, SELFPAY ==
--- NOTE | 2025-05-11 13:47 | A.OFFVIS_ITS ---
Intake Visit Reasons: possible prostatitis/BPH/UA/PVR(set) Intake Note: Reason for Visit: New Patient Possible Prostatitis/BPH Urology Meds: None Blood Thinners: None Antibiotic Allergy: None Labs: PSA- 1.42 (04/25/2025) BUN- 18 Creatinine- 1.23 (04/25/2025) Imaging: Abdomen/Pelvis CT (03/11/2025) Bladder Ultrasound (08/03/2024) Last PVR: None Todays PVR:0ML Family History: Prostate Cancer? No Bladder Cancer? No Kidney Cancer? No Previous Urology? was seen at [facility] many years ago Coil Wrapper Required: No Firebreak Cutter: Firebreak Cutter Present Accompanied by: Spouse Allergies iodine (IODINE) Allergy (Mild, Verified 05/11/25 13:53) RASH HPI Comments Details: Isak is a pleasant male. He is a patient of Dr. Hayward. He seen for the following urologic conditions - lower urinary tract symptoms - possible prostatitis AUA score total 7, bother 3 Had presentation to emergency room Upset stomach with some urgency frequency Symptoms resolved Recent PSA 1.4 Bladder ultrasound 50 g prostate At this point has minimal clinical BPH symptoms Follow-up p.r.n. [facility] Medical History Colon cancer screening Atherosclerosis Allergic rhinitis Hyperlipidemia GERD (gastroesophageal reflux disease) Surgical History Hx of colonoscopy Hx of esophagogastroduodenoscopy History of vasectomy Family History Father Alive and well Mother Hypertension Depression Paternal Aunt Breast cancer Diabetes Sister Breast cancer Paternal Grandmother Myocardial infarct Social History Housing: House Alcohol intake: current Alcohol intake frequency: a few times a month Comment: once to twice a month- 3 drinks Patient Tobacco Use Status: Never used Tobacco Tobacco use type: Cigarette Years Smoked: does Marijuana e-Cigarette/Vaping Use: Never Used Second Hand Smoke Exposure: No service: No Current occupational status: employed Cognitive needs: No Hearing needs: No Vision needs: No Review of Systems Const Denies chills and Denies fever(s) Card Reports no additional complaints and Denies syncope Resp Denies cough GI Denies abdominal pain and Denies heartburn Reports as per HPI and Denies change in libido Neuro Denies syncope Psych Denies change in libido Endo Denies change in libido Physical Exam Const General: cooperative, healthy appearing, comfortable and no acute distress Orientation/consciousness: patient oriented x3 HEENT Face and sinus: Yes normal facial exam Mouth: moist mucous membranes Neck Neck: Yes normal visual inspection, Yes full ROM and Yes trachea midline Chest Chest palpation & inspection: normal inspection of the chest Resp Effort & Inspection: normal respiratory effort, able to speak in complete sentences and no respiratory distress GI Inspection: Yes normal to inspection Back/Spine/Pelvis Cervical Spine: normal cervical lordosis Thoracic/Lumbar Spine: thoracic and lumbar spine normal to inspection Skin General skin exam: no rashes or lesions noted Neuro General: patient oriented x3, gait normal, tone normal and moves all extremities Extrem General: Yes normal to inspection and Yes capillary refill normal Office Procedures Post Void Residual Post Residual Void Post Void Residual (PVR): 0 [id number] Void Residual by ultrasound Assessment & Plan Assessment & Plan (1) BPH (benign prostatic hyperplasia): Code(s): N40.0 - Benign prostatic hyperplasia without lower urinary tract symptoms Category: Medical Qualifiers: Lower urinary tract symptom presence: symptoms absent Qualified Code(s): N40.0 - Benign prostatic hyperplasia without lower urinary tract symptoms Plan P.r.n. follow-up Orders: Orders AMB Post Void Residual by ultrasound Today N40.0 - Benign prostatic hyperplasia without lower urinary tract symptoms AMB Urinalysis Automated Today Z13.9 - Encounter for screening, unspecified Patient Instructions: This note is constructed using voice recognition software. While every effort has been made to ensure accuracy superintendent measurement errors may have been included. Imaging studies, laboratory and physical exam results were discussed and reviewed in detail. No major barriers to patient understanding were identified. An opportunity to ask questions regarding the treatment plan was provided. All questions were answered. The patient expressed understanding and agreement with the above treatment plan. The patient is aware they should contact our office by phone for worsening of their current condition or the appearance of new urologic symptoms. Compliance is encouraged with any medications and followup testing that is ordered. It is a privilege to participate in the urologic care of your patient. If you have any questions or concerns regarding treatment for the above conditions, or other urologic issues, please do not hesitate to contact me. The office telephone contact is [phone]. Sincerely, Dr Raman Sotelo MD, [facility] - Urology Compassionate Specialist Care for the Genitourinary System Coding Level of Care Code New Pt Level 3 (22839) Diagnoses Benign prostatic hyperplasia without lower urinary tract symptoms N40.0 Lower urinary tract symptom presence: symptoms absent CPT Codes Post Residual Void - PVR CPT Code: 25617-[id number] Void Residual by ultrasound ([id number])
== END 2025-05-11 14:22 | disposition home or self-care (01) ==
LOC: HO.HUSH 13:29
PROVIDERS: PCP Internal Medicine; Visit Provider Urology
DX: N40.0 Benign prostatic hyperplasia without lower urinary tract symptoms (principal)
CPT/HCPCS: 99203

== ENCOUNTER → 2025-05-11 13:28 | Outpatient (BNVA) | payer OTHER, SELFPAY | PROVIDERS: PCP Internal Medicine; Visit Provider Urology | DX: N40.0 Benign prostatic hyperplasia without lower urinary tract symptoms (principal) | CPT/HCPCS: 51798; 99202 ==

== ENCOUNTER 2025-06-07 08:20 | Outpatient (REF) | payer OTHER, SELFPAY | END 2025-06-07 08:21 | disposition home or self-care (01) | LOC: HO.LAB 08:20 | PROVIDERS: PCP Internal Medicine; Visit Provider Internal Medicine | DX: N52.9 Male erectile dysfunction, unspecified (principal) | CPT/HCPCS: 36415; 84146; 84403 ==